=== PATIENT | female | born 1995 | race Hispanic/Latino ===

== ENCOUNTER 2018-06-11 16:34 | Emergency (ER) | payer OTHER ==
[2018-06-11] MEDS: KETOROLAC 30 MG/ML VIAL (J1885) IV ×2 (18:51)
[2018-06-11 18:52] LABS: BASO % 0.4 % (0.0-1.0); EOS # 0.1 10^3/uL (0.0-0.50); EOS % 1.2 % (0.0-3.0); HEMATOCRIT 42.1 % (36.0-47.0); HEMOGLOBIN 13.6 g/dl (12.0-15.5); IMMATURE GRANULOCYTE % 0.2 % (0-3.0); LYMPH # 2.1 10^3/uL (1.5-6.5); LYMPH % 39.9 % (24.0-44.0); MEAN CORPUSCULAR HEMOGLOBIN 28.9 pg (27.0-33.0); MEAN CORPUSCULAR HGB CONC 32.3 g/dl (32.0-36.5); MEAN CORPUSCULAR VOLUME 89.4 fl (80.0-96.0); MONO # 0.5 10^3/uL (0.0-0.8); MONO % 9.1 % (0.0-5.0); NEUTROPHILS # 2.5 10^3/uL (1.8-7.7); NEUTROPHILS % 49.2 % (36.0-66.0); PLATELET COUNT, AUTOMATED 211 10^3/uL (150-450); RED BLOOD COUNT 4.71 10^6/uL (4.00-5.40); RED CELL DISTRIBUTION WIDTH 12.5 % (11.5-14.5); WHITE BLOOD COUNT 5.2 10^3/uL (4.0-10.0)
[2018-06-11 19:03] LABS: CONTROL LINE HCG INT CTR LINE PRESENT; HCG, SERUM QUALITATIVE NEGATIVE (NEGATIVE)
[2018-06-11 19:07] LABS: D-DIMER QUANT 362.5 ng/ml (<500)
[2018-06-11 19:17] LABS: ANION GAP 6 MEQ/L (8-16); BLOOD UREA NITROGEN 15 MG/DL (7-18); CARBON DIOXIDE LEVEL 28 MEQ/L (21-32); CHLORIDE LEVEL 107 MEQ/L (98-107); CPK CREATINE PHOSPHOKINASE 259 U/L (26-192); CREATININE FOR GFR 0.73 MG/DL (0.55-1.30); GLOMERULAR FILTRATION RATE > 60.0 (>60); GLUCOSE, FASTING 85 MG/DL (70-100); MB/CK RELATIVE INDEX 1.47 (< OR =4); POTASSIUM SERUM 3.8 MEQ/L (3.5-5.1); SODIUM LEVEL 141 MEQ/L (136-145); THYROID STIMULATING HORMONE 0.953 uIU/ML (0.358-3.740); TROPONIN I < 0.02 NG/ML (< 0.10)
== END 2018-06-11 20:09 | disposition home or self-care (01) ==
LOC: M ED 16:34
DX: R07.89 Other chest pain (principal); R00.1 Bradycardia, unspecified; Z82.49 Family history of ischemic heart disease and other diseases of the circulatory system
CPT/HCPCS: J1885

== ENCOUNTER 2018-07-08 19:11 | Emergency (ER) | payer OTHER ==
[2018-07-08] MEDS: predniSONE 20 MG TAB PO (20:56)
[2018-07-08] MEDS: NORCO, ANEXSIA 5/325MG TABLET (HYDROcodone/ACETAMINOPHEN) PO (20:56)
== END 2018-07-08 21:07 | disposition home or self-care (01) ==
LOC: M ED 19:11
DX: M54.5 Low back pain (principal)
CPT/HCPCS: 99283

== ENCOUNTER 2018-07-28 21:26 | Emergency (ER) | payer OTHER ==
[~2018-07-28] VITALS: Ht 149.9 cm; Wt 59.1 kg
[~2018-07-28 21:26] MED LIST: IBUP80TA PO; NORCOTAB PO; PRED20TA PO
[2018-07-28] MEDS ORDERED: OXYC1TAB23 PO (21:34)
[2018-07-28] MEDS ORDERED: METOCLOPRAMIDE INJ 10MG/2ML VIAL (J2765) IV ONE (22:15)
[2018-07-28] MEDS ORDERED: KETOROLAC 30 MG/ML VIAL (J1885) IV ONE (22:15)
[2018-07-28] MEDS ORDERED: NS 1,000 ML IV ONE (22:15)
[2018-07-28] MEDS ORDERED: diphenhydrAMINE INJ 50MG/ML VIAL (J1200) IV ONE (22:15)
[2018-07-28 22:47] LABS: BASO % 0.3 % (0.0-1.0); EOS % 0.7 % (0.0-3.0); HEMOGLOBIN 13.2 g/dl (12.0-15.5); LYMPH # 1.9 10^3/uL (1.5-6.5); LYMPH % 32.7 % (24.0-44.0); MEAN CORPUSCULAR HEMOGLOBIN 28.9 pg (27.0-33.0); MEAN CORPUSCULAR VOLUME 87.5 fl (80.0-96.0); MONO # 0.4 10^3/uL (0.0-0.8); MONO % 6.8 % (0.0-5.0); NEUTROPHILS # 3.5 10^3/uL (1.8-7.7); NEUTROPHILS % 59.3 % (36.0-66.0); PLATELET COUNT, AUTOMATED 177 10^3/uL (150-450); RED BLOOD COUNT 4.57 10^6/uL (4.00-5.40); WHITE BLOOD COUNT 5.9 10^3/uL (4.0-10.0)
[2018-07-28 23:27] LABS: BLOOD UREA NITROGEN 11 MG/DL (7-18); CALCIUM LEVEL 8.5 MG/DL (8.5-10.1); CARBON DIOXIDE LEVEL 29 MEQ/L (21-32); CHLORIDE LEVEL 107 MEQ/L (98-107); CREATININE FOR GFR 0.65 MG/DL (0.55-1.30); GLOMERULAR FILTRATION RATE > 60.0 (>60); GLUCOSE, FASTING 91 MG/DL (70-100); POTASSIUM SERUM 4.3 MEQ/L (3.5-5.1); SODIUM LEVEL 142 MEQ/L (136-145)
[2018-07-28 23:57] VITALS: BP 125/72
== END 2018-07-28 23:58 | disposition home or self-care (01) ==
LOC: M ED 21:26
DX: G43.909 Migraine, unspecified, not intractable, without status migrainosus (principal)
CPT/HCPCS: 80048; 81001; 81025; 83735; 84439; 84443; 85025; 96374; 96375; 99284; J1200; J1885; J2765

== ENCOUNTER → 2019-05-28 | Outpatient (CLI) | payer OTHER ==
[~2019-05-28] MED LIST changes: +HYDR-3715 PO; -NORCOTAB PO; +OXYC1TAB23 PO
[2019-05-30 00:11] LABS: ANTINUCLEAR ANTIBODIES DIRECT Negative (Negative)
[2019-06-03 10:14] LABS: DRVV SCREEN 36.9 SEC
[2019-06-03 10:17] LABS: PTT LUPUS TYPE ANTICOAG SCREEN 0.9 (0-1.2)
== END ==
LOC: M SMT 10:18
PROVIDERS: ATTEND Physician Assistant
DX: I73.00 Raynaud's syndrome without gangrene (principal)

== ENCOUNTER → 2019-06-16 | Outpatient (REF) | payer OTHER | LOC: M LAB REF 16:33 | PROVIDERS: ATTEND Nurse Practitioner Family | DX: J02.9 Acute pharyngitis, unspecified (principal) ==

== ENCOUNTER 2019-07-08 06:20 | Emergency (ER) | payer OTHER ==
[~2019-07-08] VITALS: Ht 149.9 cm; Wt 61.4 kg
[2019-07-08] MEDS ORDERED: TETRACAINE 0.5% OPHTH SOLN 4ML OU ONE (06:45)
[2019-07-08] MEDS ORDERED: FLUORESCEIN OPHTH 1 MG STRIP OU ONE (06:45)
[2019-07-08] MEDS ORDERED: OFLO3OPSO OU (07:59)
[2019-07-08] MEDS ORDERED: AUGM875T28 PO (07:59)
[2019-07-08 08:32] VITALS: BP 136/88
== END 2019-07-08 08:15 | disposition home or self-care (01) ==
LOC: M ED 06:20
DX: H10.33 Unspecified acute conjunctivitis, bilateral (principal); J01.90 Acute sinusitis, unspecified

== ENCOUNTER → 2019-08-28 | Outpatient (CLI) | payer OTHER ==
[~2019-08-28] MED LIST changes: +AUGM875T28 PO; +OFLO3OPSO OU
[2019-08-28 13:43] LABS: BASO % 0.4 % (0.0-1.0); EOS # 0.1 10^3/uL (0.0-0.5); EOS % 2.1 % (0.0-3.0); HEMATOCRIT 44.5 % (36.0-47.0); HEMOGLOBIN 13.9 g/dl (12.0-15.5); LYMPH # 1.8 10^3/uL (1.5-5.0); LYMPH % 34.5 % (24.0-44.0); MEAN CORPUSCULAR HEMOGLOBIN 28.7 pg (27.0-33.0); MEAN CORPUSCULAR HGB CONC 31.2 g/dl (32.0-36.5); MEAN CORPUSCULAR VOLUME 91.8 fl (80.0-96.0); MONO # 0.5 10^3/uL (0.0-0.8); MONO % 9.1 % (0.0-5.0); NEUTROPHILS # 2.8 10^3/uL (1.5-8.5); NEUTROPHILS % 53.7 % (36.0-66.0); PLATELET COUNT, AUTOMATED 191 10^3/uL (150-450); RED BLOOD COUNT 4.85 10^6/uL (4.00-5.40); WHITE BLOOD COUNT 5.2 10^3/uL (4.0-10.0)
[2019-08-28 14:00] LABS: ALT/SGPT 34 U/L (12-78); BILIRUBIN,TOTAL 0.8 MG/DL (0.2-1.0); BLOOD UREA NITROGEN 12 MG/DL (7-18); CALCIUM LEVEL 9.2 MG/DL (8.5-10.1); CARBON DIOXIDE LEVEL 28 MEQ/L (21-32); CHLORIDE LEVEL 107 MEQ/L (98-107); CREATININE FOR GFR 0.71 MG/DL (0.55-1.30); FREE T4 1.04 NG/DL (0.76-1.46); GLOMERULAR FILTRATION RATE > 60.0 (>60); GLUCOSE, FASTING 81 MG/DL (70-100); POTASSIUM SERUM 4.5 MEQ/L (3.5-5.1); SODIUM LEVEL 141 MEQ/L (136-145); THYROID STIMULATING HORMONE 0.871 uIU/ML (0.358-3.740); TOTAL PROTEIN 7.3 GM/DL (6.4-8.2)
== END ==
LOC: M PLALAB 09:34
PROVIDERS: ATTEND Physician Assistant
DX: F33.1 Major depressive disorder, recurrent, moderate (principal)

== ENCOUNTER → 2019-09-25 | Outpatient (CLI) | payer OTHER ==
--- NOTE | 2019-09-25 11:53 | REP ---
Clinical: Pelvic pain and dysmenorrhea. Technique: Transabdominal pelvic ultrasound with color evaluation. Findings: The bladder is under distended. Normal anteverted uterus measures 6.6 x 3.8 x 4.9 cm. Endometrial complex measures 3.9 mm. No uterine or endometrial abnormality noted. Bilateral ovaries are normal in appearance and vascularity without torsion. Right ovary measures 3.5 x 1.9 x 1.6 cm. Left ovary measures 3.8 x 1.4 x 2.4 cm. No pelvic fluid or adnexal mass lesion. Impression: Normal transabdominal pelvic ultrasound.
== END ==
LOC: M WHC 11:07
PROVIDERS: ATTEND Obstetrics & Gynecology
DX: R10.2 Pelvic and perineal pain (principal)

== ENCOUNTER → 2019-11-26 | Outpatient (CLI) | payer OTHER ==
[2019-11-26 13:09] LABS: BASO % 0.6 % (0.0-1.0); EOS # 0.1 10^3/uL (0.0-0.5); EOS % 1.4 % (0.0-3.0); HEMATOCRIT 46.1 % (36.0-47.0); HEMOGLOBIN 14.8 g/dl (12.0-15.5); LYMPH # 1.7 10^3/uL (1.5-5.0); LYMPH % 32.9 % (24.0-44.0); MEAN CORPUSCULAR HEMOGLOBIN 28.9 pg (27.0-33.0); MEAN CORPUSCULAR HGB CONC 32.1 g/dl (32.0-36.5); MONO # 0.4 10^3/uL (0.0-0.8); MONO % 8.6 % (0.0-5.0); NEUTROPHILS # 2.8 10^3/uL (1.5-8.5); NEUTROPHILS % 56.3 % (36.0-66.0); PLATELET COUNT, AUTOMATED 177 10^3/uL (150-450); RED BLOOD COUNT 5.12 10^6/uL (4.00-5.40)
[2019-11-26 13:46] LABS: FREE T4 1.39 NG/DL (0.76-1.46); THYROID STIMULATING HORMONE 1.13 uIU/ML (0.358-3.740)
== END ==
LOC: M PLALAB 11:48
PROVIDERS: ATTEND Family Medicine
DX: Z13.29 Encounter for screening for other suspected endocrine disorder (principal); Z13.0 Encounter for screening for diseases of the blood and blood-forming organs and certain disorders involving the immune mechanism

== ENCOUNTER 2020-02-13 10:57 | Emergency (ER) | payer OTHER ==
[~2020-02-13] VITALS: Ht 149.9 cm; Wt 63.3 kg
[2020-02-13] MEDS ORDERED: LEXA1TAB PO (11:08)
[2020-02-13] MEDS ORDERED: DEPO150I12 IM (11:08)
[2020-02-13 12:26] VITALS: BP 133/86
--- NOTE | 2020-02-13 12:47 | REP ---
RIGHT WRIST, FOUR VIEWS: Four views of the right wrist are performed. There is no acute fracture or dislocation. There is ulnar minus variance. The joint spaces are unremarkable. IMPRESSION: No fracture or dislocation. Electronically Signed by Khurram Bassett MD 02/15/2020 11:11 P
== END 2020-02-13 12:28 | disposition home or self-care (01) ==
LOC: M ED 10:57
DX: M25.531 Pain in right wrist (principal); Z79.3 Long term (current) use of hormonal contraceptives; Z79.899 Other long term (current) drug therapy

== ENCOUNTER 2020-04-07 04:36 | Emergency (ER) | payer OTHER ==
[~2020-04-07] VITALS: Ht 149.9 cm; Wt 63.6 kg
[~2020-04-07 04:36] MED LIST changes: +DEPO150I12 IM; +LEXA1TAB PO
[2020-04-07] MEDS ORDERED: ZONI25CA13 PO (04:44)
[2020-04-07] MEDS ORDERED: METOCLOPRAMIDE INJ 10MG/2ML VIAL (J2765 PER 1) IV ONE (05:30)
[2020-04-07] MEDS ORDERED: NS 1,000 ML IV ONE (05:30)
[2020-04-07] MEDS ORDERED: diphenhydrAMINE 50MG/ML VIAL (J1200) IV ONE (05:30)
[2020-04-07] MEDS ORDERED: diazePAM 10MG/2ML SYRINGE (J3360 PER 5MG) IV ONE (05:30)
[2020-04-07] MEDS ORDERED: KETOROLAC 30 MG/ML 1ML VIAL IV ONE (05:30)
[2020-04-07 06:59] LABS: BASO % 0.5 % (0.0-1.0); EOS # 0.1 10^3/uL (0.0-0.5); EOS % 2.4 % (0.0-3.0); HEMATOCRIT 43.5 % (36.0-47.0); HEMOGLOBIN 14.2 g/dl (12.0-15.5); LYMPH # 1.9 10^3/uL (1.5-5.0); LYMPH % 32.6 % (24.0-44.0); MEAN CORPUSCULAR HGB CONC 32.6 g/dl (32.0-36.5); MONO # 0.5 10^3/uL (0.0-0.8); MONO % 9.1 % (0.0-5.0); NEUTROPHILS # 3.2 10^3/uL (1.5-8.5); NEUTROPHILS % 55.2 % (36.0-66.0); PLATELET COUNT, AUTOMATED 191 10^3/uL (150-450); RED BLOOD COUNT 4.89 10^6/uL (4.00-5.40); WHITE BLOOD COUNT 5.8 10^3/uL (4.0-10.0)
[2020-04-07 07:25] LABS: BLOOD UREA NITROGEN 13 MG/DL (7-18); CALCIUM LEVEL 9.1 MG/DL (8.5-10.1); CARBON DIOXIDE LEVEL 24 MEQ/L (21-32); CHLORIDE LEVEL 110 MEQ/L (98-107); CREATININE FOR GFR 0.73 MG/DL (0.55-1.30); GLOMERULAR FILTRATION RATE > 60.0 (>60); GLUCOSE, FASTING 86 MG/DL (70-100); POTASSIUM SERUM 4.2 MEQ/L (3.5-5.1); SODIUM LEVEL 140 MEQ/L (136-145)
[2020-04-07] MEDS ORDERED: MECL1TAB31 PO (09:38)
[2020-04-07 09:56] VITALS: BP 131/71
== END 2020-04-07 09:58 | disposition home or self-care (01) ==
LOC: M ED 04:36
DX: R42 Dizziness and giddiness (principal); G43.909 Migraine, unspecified, not intractable, without status migrainosus; Z79.899 Other long term (current) drug therapy; Z86.69 Personal history of other diseases of the nervous system and sense organs
CPT/HCPCS: 80048; 85025; 96374; 96375; 99284; J1200; J1885; J2765; J3360

== ENCOUNTER → 2020-04-23 | Outpatient (CLI) | payer OTHER ==
[~2020-04-23] MED LIST changes: +MECL1TAB31 PO; +ZONI25CA13 PO
[2020-04-23 13:05] LABS: BASO % 0.5 % (0.0-1.0); EOS # 0.1 10^3/uL (0.0-0.5); EOS % 1.4 % (0.0-3.0); HEMATOCRIT 46.8 % (36.0-47.0); HEMOGLOBIN 14.9 g/dl (12.0-15.5); LYMPH # 1.9 10^3/uL (1.5-5.0); LYMPH % 32.4 % (24.0-44.0); MEAN CORPUSCULAR HEMOGLOBIN 28.6 pg (27.0-33.0); MEAN CORPUSCULAR HGB CONC 31.8 g/dl (32.0-36.5); MEAN CORPUSCULAR VOLUME 89.8 fl (80.0-96.0); MONO # 0.5 10^3/uL (0.0-0.8); MONO % 8.2 % (0.0-5.0); NEUTROPHILS # 3.3 10^3/uL (1.5-8.5); NEUTROPHILS % 57.2 % (36.0-66.0); PLATELET COUNT, AUTOMATED 213 10^3/uL (150-450); RED BLOOD COUNT 5.21 10^6/uL (4.00-5.40); WHITE BLOOD COUNT 5.8 10^3/uL (4.0-10.0)
[2020-04-23 13:36] LABS: ERYTHROCYTE SEDIMENTATION RATE 21 mm/hr (0-20)
[2020-04-23 14:51] LABS: ALT/SGPT 47 U/L (12-78); BLOOD UREA NITROGEN 12 MG/DL (7-18); CALCIUM LEVEL 9.6 MG/DL (8.5-10.1); CARBON DIOXIDE LEVEL 24 MEQ/L (21-32); CHLORIDE LEVEL 108 MEQ/L (98-107); CREATININE FOR GFR 0.67 MG/DL (0.55-1.30); GLOMERULAR FILTRATION RATE > 60.0 (>60); GLUCOSE, FASTING 75 MG/DL (70-100); POTASSIUM SERUM 4.8 MEQ/L (3.5-5.1); RHEUMATOID FACTOR QUANT < 10.0 IU/ML (<15.0); SODIUM LEVEL 138 MEQ/L (136-145); TOTAL PROTEIN 7.8 GM/DL (6.4-8.2)
[2020-04-24 16:08] LABS: ANTINUCLEAR ANTIBODIES DIRECT Negative (Negative)
== END ==
LOC: M PLALAB 10:39
PROVIDERS: ATTEND Psychiatry & Neurology Neurology
DX: R51 Headache (principal)

== ENCOUNTER → 2020-05-27 | Outpatient (CLI) | payer SELFPAY | LOC: M LABSMTC 11:22 | PROVIDERS: ATTEND Pediatrics | DX: Z11.59 Encounter for screening for other viral diseases (principal) ==

== ENCOUNTER → 2020-06-19 | Outpatient (REF) | payer SELFPAY | LOC: M LABSMTC 08:00 → EDSTATUS 09:20 → M LABSMTC 10:45 | PROVIDERS: ATTEND Pediatrics | DX: Z20.828 Contact with and (suspected) exposure to other viral communicable diseases (principal) ==

== ENCOUNTER → 2020-08-09 | Outpatient (CLI) | payer SELFPAY | LOC: M LABSMTC 13:52 | PROVIDERS: ATTEND Pediatrics | DX: Z20.828 Contact with and (suspected) exposure to other viral communicable diseases (principal) ==

== ENCOUNTER → 2020-08-12 | Outpatient (CLI) | payer SELFPAY | LOC: M LABSMTC 12:57 | PROVIDERS: ATTEND Pediatrics | DX: Z20.822 Contact with and (suspected) exposure to COVID-19 (principal) ==

== ENCOUNTER → 2020-08-26 | Outpatient (REF) | payer SELFPAY ==
[~2020-08-26] MED LIST changes: +BRIN10TA4 PO; +METH-1164 PO; +NAPR-837 PO
== END ==
LOC: M LABSMTC 08:35 → EDSTATUS 11:40 → M LABSMTC 11:48
PROVIDERS: ATTEND Pediatrics
DX: Z20.822 Contact with and (suspected) exposure to COVID-19 (principal)

== ENCOUNTER 2020-09-02 06:33 | Emergency (ER) | payer OTHER, SELFPAY ==
[~2020-09-02] VITALS: Ht 149.9 cm; Wt 68.8 kg
[~2020-09-02 06:33] MED LIST changes: -BRIN10TA4 PO; -METH-1164 PO; -NAPR-837 PO
--- OUTSIDE RECORDS SUMMARY | 2020-09-02 06:41 | CCD ---
Continuity of Care Document (CCD) Created on: 08/12/2020 PieterkennKiera External Reference #: [id number] : [id number] Sex: Female Author Author Kiera JJ M.D. Organization Unknown Address [facility] [place] [address] Phone [phone] Care Team Providers Care Yield Analyst Name Role Phone Miracle FinleyM [phone] Problems Active Problems Provider Date Headache Preeti Jj M.D. Onset: 03/29/2020 Social History Type Date Description Comments Sex Unknown Tobacco Use Start: Unknown Patient has never smoked Allergies, Adverse Reactions, Alerts Description No Known Drug Allergies Medications Active Medications SIG Qnty Indications Ordering Provide r Date Zonisamide 25mg Capsules 1 tab by mouth nightly x 1 week, then 1 tab twice a day x 1 week, then 1 tab morning and 2 tabs nightly 42caps Preeti Jj M.D. 03/29/2020 Zonisamide 50mg Capsules 1 by mouth twice a day 60caps Preeti Jj M.D. 03/29/2020 Immunizations Description No Information Available Vital Signs Date Vital Result Comment 03/29/2020 3:15pm Height 59 inches 4'11" Weight 142.00 lb BMI (Body Mass Index) 28.7 kg/m2 [place] Body Weight 100 lb Results Test Acquired Date Facility Test Result H/L Range Note CBC With Differential 04/23/2020 [facility] White Blood Count 5.8 10 Normal 4.0-10.0 Red Blood Count 5.21 10 Normal 4.00-5.40 Hemoglobin 14.9 g/dL Normal 12.0-15.5 Hematocrit 46.8 % Normal 36.0-47.0 Mean Corpuscular Volume 89.8 fl Normal 80.0-96.0 Mean Corpuscular Hemoglobin 28.6 pg Normal 27.0-33.0 Mean Corpuscular HGB Conc 31.8 g/dL Low 32.0-36.5 Red Cell Distribution Width 13.1 % Normal 11.5-14.5 Platelet Count, Automated 213 10 Normal 150-450 Neutrophils % 57.2 % Normal 36.0-66.0 Lymph % 32.4 % Normal 24.0-44.0 [place] % 8.2 % High 0.0-5.0 Eos % 1.4 % Normal 0.0-3.0 Baso % 0.5 % Normal 0.0-1.0 Immature Granulocyte % 0.3 % Normal 0-3.0 Nucleated Red Blood Cell % 0.0 % Normal 0-0 Neutrophils # 3.3 10 Normal 1.5-8.5 Lymph # 1.9 10 Normal 1.5-5.0 [place] # 0.5 10 Normal 0.0-0.8 Eos # 0.1 10 Normal 0.0-0.5 Baso # 0.0 10 Normal 0.0-0.2 Laboratory test finding 04/23/2020 [facility] Erythrocyte Sedimentation Rate 21 mm/hr High 0-20 Comprehensive Metabolic Profil 04/23/2020 [facility] Glucose, Fasting 75 mg/dL Normal 70-100 Blood Urea Nitrogen 12 mg/dL Normal 7-18 Creatinine For GFR 0.67 mg/dL Normal 0.55-1.30 Glomerular Filtration Rate > 60.0 Normal >60 1 Sodium Level 138 mEq/L Normal 136-145 Potassium Serum 4.8 mEq/L Normal 3.5-5.1 Chloride Level 108 mEq/L High 98-107 Carbon Dioxide Level 24 mEq/L Normal 21-32 Anion Gap 6 mEq/L Low 8-16 Calcium Level 9.6 mg/dL Normal 8.5-10.1 Ast/Sgot 60 U/L High 7-37 Alt/SGPT 47 U/L Normal 12-78 Alkaline Phosphatase 80 U/L Normal 45-117 Bilirubin,Total 1.0 mg/dL Normal 0.2-1.0 Total Protein 7.8 GM/DL Normal 6.4-8.2 Albumin 4.0 GM/DL Normal 3.2-5.2 Albumin/Globulin Ratio 1.1 Low 1.2-2.2 Laboratory test finding 04/23/2020 [facility] Thyroid Stimulating Hormone 1.000 uIU/ML Normal 0.358-3.740 2 Rheumatoid Factor Quant < 10.0 IU/mL Normal <15.0 3 Antinuclear Antibodies 04/23/2020 [facility] Antinuclear Antibodies Direct Negative Normal Negative 4 1 Units are mL/min/1.73 m2 Chronic Kidney Disease Staging per NKF: Stage I & II GFR >=60 Normal to Mildly Decreased Stage III GFR 30-59 Moderately Decreased Stage IV GFR 15-29 Severely Decreased Stage V GFR <15 Very Little GFR Left ESRD GFR <15 on [employer] 2 note:<nlbl:demographic_chang ed> 3 note:<nlbl:demographic_chang ed> 4 Performed at: - [facility] [address] [id number] Edger Machine Operator: Taryn Robledo MD, Phone: [phone] Procedures Date Code Description Status 04/14/2020 75102 MRI Brain W/O Contrast Completed 04/14/2020 47276 MRI Brain W/O Contrast Completed 04/14/2020 07800 Magnetic Resonance Angiography N renata W/O Contrast Materials Completed 04/14/2020 32180 Magnetic Resonance Angiography N renata W/O Contrast Materials Completed 04/14/2020 48956 Magnetic Resonance Angiogtaphy H ead W/O Contrast Material(S) Completed 04/14/2020 89345 Magnetic Resonance Angiogtaphy H ead W/O Contrast Material(S) Completed Medical Devices Description No Information Available Encounters Type Date Location Provider Dx Diagnosis Office Visit 03/29/2020 2:00p Main office - [place] Preeti Jj M.D. G47.51 Confusional arousals R42 Dizziness and giddiness G43.809 Other migraine, not intracta ble, without status migrainosus I95.1 Orthostatic hypotension H53.8 Other visual disturbances G44.40 Drug-induced headache, NEC, not intractable Assessments Date Code Description Provider 04/14/2020 G43.809 Other migraine, not intractable, without status migrainosus Gabriel Jj M.D. 04/14/2020 G43.809 Other migraine, not intractable, without status migrainosus MRI 04/14/2020 R42 Dizziness and giddiness Gabriel Rivera M.D. 04/14/2020 R42 Dizziness and giddiness MRI 03/29/2020 G47.51 Confusional arousals Preeti manjarrez M.D. 03/29/2020 R42 Dizziness and giddiness Preeti rivera M.D. 03/29/2020 G43.809 Other migraine, not intractable, without status migrainosus Preeti Jj M.D. 03/29/2020 I95.1 Orthostatic hypotension Preeti rivera M.D. 03/29/2020 H53.8 Other visual disturbances Preeti Jj M.D. 03/29/2020 G44.40 Drug-induced headach e, not elsewhere classified, not intractable Preeti Jj M.D. Plan of Treatment No Information Available Functional Status Description No Information Available Mental Status Description No Information Available Referrals Refer to Dr Reason for Referral Status Appt Date Lara Betts M.D. Created [address] [place] [address] [phone] Lara Betts M.D. Created [address] [place] [address] [phone]
--- OUTSIDE RECORDS SUMMARY | 2020-09-02 06:41 | CCD | Continuity of Care Document ---
Author Author Kiera JJ M.D. Organization Unknown Address [facility] [place] [address] Phone [phone] Care Team Providers Care Heel Varnisher Name Role Phone Miracle FinleyM Problems Active Problems Provider Date Headache Preeti [...] lb BMI (Body Mass Index) 28.7 kg/m2 [place] Body Weight 100 lb Results Test Acquired Date Facility Test Result H/L Range Note CBC With Differential 04/23/2020 [facility] White Blood Count 5.8 10 Normal [...] 36.0-66.0 Lymph % 32.4 % Normal 24.0-44.0 [place] % 8.2 % High 0.0-5.0 Eos % 1.4 % Normal 0.0-3.0 Baso % 0.5 % Normal 0.0-1.0 Immature Granulocyte % 0.3 % Normal 0-3.0 Nucleated Red Blood Cell % 0.0 % Normal 0-0 Neutrophils # 3.3 10 Normal 1.5-8.5 Lymph # 1.9 10 Normal 1.5-5.0 [place] # 0.5 10 Normal 0.0-0.8 Eos # 0.1 10 Normal 0.0-0.5 Baso # 0.0 10 Normal 0.0-0.2 Laboratory test finding 04/23/2020 [facility] Erythrocyte Sedimentation Rate 21 mm/hr High 0-20 Comprehensive Metabolic Profil 04/23/2020 [facility] Glucose, Fasting 75 mg/dL Normal 70-100 [...] 1.1 Low 1.2-2.2 Laboratory test finding 04/23/2020 [facility] Thyroid Stimulating Hormone 1.000 uIU/ML Normal 0.358-3.740 2 Rheumatoid Factor Quant < 10.0 IU/mL Normal <15.0 3 Antinuclear Antibodies 04/23/2020 [facility] Antinuclear Antibodies Direct Negative Normal Negative 4 1 Units are mL/min/1.73 m2 Chronic Kidney Disease Staging per NKF: Stage I & II GFR >=60 Normal to Mildly Decreased Stage III GFR 30-59 Moderately Decreased Stage IV GFR 15-29 Severely Decreased Stage V GFR <15 Very Little GFR Left ESRD GFR <15 on CLINICAL TECH 2 note:<nlbl:demographic_chang ed> 3 note:<nlbl:demographic_chang ed> 4 Performed at: [facility] [id number] Real Estate Instructor: Taryn Robledo MD, Phone: [phone] Procedures Date Code Description Status 04/14/2020 37723 MRI Brain W/O Contrast Completed 04/14/2020 41147 MRI Brain W/O Contrast Completed 04/14/2020 12867 Magnetic Resonance Angiography N renata W/O Contrast Materials Completed 04/14/2020 63249 Magnetic Resonance Angiography N renata W/O Contrast Materials Completed 04/14/2020 44420 Magnetic Resonance Angiogtaphy H ead W/O Contrast Material(S) Completed 04/14/2020 91034 Magnetic Resonance Angiogtaphy H ead W/O Contrast Material(S) Completed Medical Devices Description No Information Available Encounters Type Date Location Provider Dx Diagnosis Office Visit 08/12/2020 9:00a Main office [place] M.[place]. R42 Dizziness and giddiness G43.809 Other migraine, not intracta ble, without status migrainosus M54.2 Cervicalgia I95.1 Orthostatic hypotension M54.81 Occipital neuralgia G44.40 Drug-induced headache, NEC, not intractable Office Visit 03/29/2020 2:00p Main office - [place] M.D. G47.51 Confusional arousals R42 Dizziness and giddiness G43.809 Other migraine, not intracta ble, without status migrainosus I95.1 Orthostatic hypotension H53.8 Other visual disturbances G44.40 Drug-induced headache, NEC, not intractable Assessments Date Code Description Provider 08/12/2020 R42 Dizziness and giddiness Preeti L nicole, M.D. 08/12/2020 G43.809 Other migraine, not intractable, without status migrainosus Preeti Анна, M.D. 08/12/2020 M54.2 Cervicalgia Preeti Анна, M. D. 08/12/2020 I95.1 Orthostatic hypotension Preeti L nicole, M.D. 08/12/2020 M54.81 Occipital neuralgia Preeti Анна , M.D. 08/12/2020 G44.40 Drug-induced headach e, not elsewhere classified, not intractable Preeti Анна, M.D. 04/14/2020 G43.809 Other migraine, not intractable, without status migrainosus Gabriel Анна, M.D. 04/14/2020 G43.809 Other migraine, not intractable, without status migrainosus MRI 04/14/2020 R42 Dizziness and giddiness Gabriel Yuliya steele M.DMya 04/14/2020 R42 Dizziness and giddiness MRI 03/29/2020 G47.51 Confusional arousals Preeti Palumboasia manjarrez M.DMya 03/29/2020 R42 Dizziness and giddiness Preeti L nicole, M.D. 03/29/2020 G43.809 Other migraine, not intractable, without status migrainosus Preeti Анна, M.D. 03/29/2020 I95.1 Orthostatic hypotension Preeti Prado nicole, M.D. 03/29/2020 H53.8 Other visual disturbances Preeti Анна, M.DMya 03/29/2020 G44.40 Drug-induced headach e, not elsewhere classified, not intractable Preeti Jj M.D. Plan of Treatment No Information Available Functional Status Description No Information Available Mental Status Description No Information Available Referrals Refer to Dr Reason for Referral Status Appt Date Lara Betts M.D. Created [address] [place] [address] [phone] Lara Betts M.D. Created [address] [place] [address] [phone]
--- OUTSIDE RECORDS SUMMARY | 2020-09-02 06:42 | CCD ---
Author Author [facility] Organization [facility] Address Unknown Phone Unavailable Care Team Providers Care Minute Clerk For Basic Traffic Name Role Phone OSMAN RON MD Unavailable Unavailable OSMAN RON MD Unavailable Unavailable OSMAN RON MD Unavailable Unavailable OSMAN RON MD Unavailable Unavailable OSMAN RON MD Unavailable Unavailable OSMAN RON MD Unavailable Unavailable OSMAN RON MD Unavailable Unavailable OSMAN RON MD Unavailable Unavailable OSMAN RON MD Unavailable Unavailable OSMAN RON MD Unavailable Unavailable OSMAN RON MD Unavailable Unavailable OSMAN RON MD Unavailable Unavailable OSMAN RON MD Unavailable Unavailable OSMAN RON MD Unavailable Unavailable OSMAN RON MD Unavailable Unavailable OSMAN RON MD Unavailable Unavailable OSMAN RON MD Unavailable Unavailable OSMAN RON MD Unavailable Unavailable OSMAN RON MD Unavailable Unavailable OSMAN RON MD Unavailable Unavailable OSMAN RON MD Unavailable Unavailable OSMAN RON MD Unavailable Unavailable OSMAN RON MD Unavailable Unavailable ARIADNEOSMAN WELLS MD Unavailable Unavailable ARIADNE, OSMAN REYES Unavailable Unavailable ARIADNE, OSMAN MD Unavailable Unavailable ARIADNE, OSMAN REYES Unavailable Unavailable ARIADNE, OSMAN MD Unavailable Unavailable ARIADNE, OSMAN MD Unavailable Unavailable ARIADNE, OSMAN MD Unavailable Unavailable ARIADNE, OSMAN MD Unavailable Unavailable ARIADNE, OSMAN REYES Unavailable Unavailable ARIADNE, OSMAN MD Unavailable Unavailable ARIADNE, OSMAN REYES Unavailable Unavailable ARIADNE, OSMAN REYES Unavailable Unavailable ARIADNE, OSMAN MD Unavailable Unavailable ARIADNE, OSMAN REYES Unavailable Unavailable ARIADNE, OSMAN REYES Unavailable Unavailable ARIADNE, OSMAN REYES Unavailable Unavailable ARIADNE, OSMAN REYES Unavailable Unavailable Farideh BURKS MD Unavailable Unavailable Farideh BURKS MD Unavailable Unavailable Farideh BURKS MD Unavailable Unavailable Farideh BURKS MD Unavailable Unavailable Farideh BURKS MD Unavailable Unavailable Farideh BURKS MD Unavailable Unavailable Farideh BURKS MD Unavailable Unavailable Farideh BURKS MD Unavailable Unavailable Farideh BURKS MD Unavailable Unavailable Farideh BURKS MD Unavailable Unavailable Farideh BURKS MD Unavailable Unavailable Farideh BURKS MD Unavailable Unavailable Farideh BURKS MD Unavailable Unavailable Farideh BURKS MD Unavailable Unavailable Farideh BURKS MD Unavailable Unavailable Farideh BURKS MD Unavailable Unavailable Farideh BURKS MD Unavailable Unavailable Farideh BURKS MD Unavailable Unavailable Farideh BURKS MD Unavailable Unavailable Farideh BURKS MD Unavailable Unavailable Farideh BURKS MD Unavailable Unavailable Farideh BURKS MD Unavailable Unavailable Farideh BURKS MD Unavailable Unavailable Farideh BURKS MD Unavailable Unavailable Farideh BURKS MD Unavailable Unavailable Farideh BURKS MD Unavailable Unavailable Farideh BURKS MD Unavailable Unavailable Katie, Kamran PA Unavailable Unavailable Katie, Kamran PA Unavailable Unavailable Katie, Kamran PA Unavailable Unavailable Katie, Kamran PA Unavailable Unavailable Katie, Kamran PA Unavailable Unavailable Katie, Kamran PA Unavailable Unavailable Katie, Kamran PA Unavailable Unavailable Katie, Kamran PA Unavailable Unavailable Katie, Kamran PA Unavailable Unavailable Katie, Kamran PA Unavailable Unavailable Katie, Kamran PA Unavailable Unavailable Katie, Kamran PA Unavailable Unavailable Katie, Kamran PA Unavailable Unavailable Katie, Kamran PA Unavailable Unavailable Katie, Kamran PA Unavailable Unavailable Katie, Kamran PA Unavailable Unavailable Katie, Kamran PA Unavailable Unavailable Katie, Kamran PA Unavailable Unavailable Katie, Kamran PA Unavailable Unavailable Katie, Kamran PA Unavailable Unavailable Katie, Kamran PA Unavailable Unavailable Katie, Kamran PA Unavailable Unavailable Katie, Kamran PA Unavailable Unavailable Katie, Kamran PA Unavailable Unavailable Katie, Kamran PA Unavailable Unavailable Katie, Kamran PA Unavailable Unavailable Katie, Kamran PA Unavailable Unavailable Katie, Kamran PA Unavailable Unavailable Katie, Kamran PA Unavailable Unavailable Katie, Kamran PA Unavailable Unavailable Katie, Kamran PA Unavailable Unavailable Katie, Kamran PA Unavailable Unavailable Katie, Kamran PA Unavailable Unavailable Katie, Kamran PA Unavailable Unavailable Katie, Kamran PA Unavailable Unavailable Katie, Kamran PA Unavailable Unavailable Katie, Kamran PA Unavailable Unavailable Katie, Kamran PA Unavailable Unavailable Katie, Kamran PA Unavailable Unavailable Katie, Kamran PA Unavailable Unavailable Katie, Kamran PA Unavailable Unavailable Katie, Kamran PA Unavailable Unavailable Katie, Kamran PA Unavailable Unavailable Katie, Kamran PA Unavailable Unavailable Katei, Kamran PA Unavailable Unavailable Katie, Kamran PA Unavailable Unavailable Katie, Kamran PA Unavailable Unavailable Katie, Kamran PA Unavailable Unavailable Annie Delaney MD Unavailable Unavailable Annie Delaney MD Unavailable Unavailable Annie Delaney MD Unavailable Unavailable Annie Delaney MD Unavailable Unavailable Annie Delaney MD Unavailable Unavailable MollAnnie murry MD Unavailable Unavailable MollAnnie murry MD Unavailable Unavailable Annie Delaney MD Unavailable Unavailable Annie Delaney MD Unavailable Unavailable Annie Delaney MD Unavailable Unavailable Annie Delaney MD Unavailable Unavailable Annie Delaney MD Unavailable Unavailable Annie Delaney MD Unavailable Unavailable Annie Delaney MD Unavailable Unavailable Annie Delaney MD Unavailable Unavailable Annie Delaney MD Unavailable Unavailable Annie Delaney MD Unavailable Unavailable Annie Delaney MD Unavailable Unavailable Annie Delaney MD Unavailable Unavailable Annie Delaney MD Unavailable Unavailable Annie Delaney MD Unavailable Unavailable Annie Delaney MD Unavailable Unavailable FRANCHESKA-VILMA, JAYY DO Unavailable Unavailable FRANCHESKA-VILMA, JAYY DO Unavailable Unavailable FRANCHESKA-VILMA, JAYY DO Unavailable Unavailable FRANCHESKA-VILMA, JAYY DO Unavailable Unavailable FRANCHESKA-VILMA, JAYY DO Unavailable Unavailable FRANCHESKA-VILMA, JAYY DO Unavailable Unavailable FRANCHESKA-VILMA, JAYY DO Unavailable Unavailable FRANCHESKA-VILMA, JAYY DO Unavailable Unavailable FRANCHESKA-VILMA, JAYY DO Unavailable Unavailable FRANCHESKA-VILMA, JAYY DO Unavailable Unavailable FRANCHESKA-VILMA, JAYY DO Unavailable Unavailable FRANCHESKA-VILMA, JAYY DO Unavailable Unavailable FRANCHESKA-VILMA, JAYY DO Unavailable Unavailable FRANCHESKA-VILMA, JAYY DO Unavailable Unavailable FRANCHESKA-VILMA, JAYY DO Unavailable Unavailable FRANCHESKA-VILMA, JAYY DO Unavailable Unavailable FRANCHESKA-VILMA, JAYY DO Unavailable Unavailable FRANCHESKA-VILMA, JAYY DO Unavailable Unavailable FRANCHESKA-VILMA, JAYY DO Unavailable Unavailable FRANCHESKA-VILMA, JAYY DO Unavailable Unavailable FRANCHESKA-VILMA, JAYY DO Unavailable Unavailable FRANCHESKA-VILMA, JAYY DO Unavailable Unavailable FRANCHESKA-VILMA, JAYY DO Unavailable Unavailable FRANCHESKA-VILMA, JAYY DO Unavailable Unavailable FRANCHESKA-VILMA, JAYY DO Unavailable Unavailable FRANCHESKA-VILMA, JAYY DO Unavailable Unavailable FRANCHESKA-VILMA, JAYY DO Unavailable Unavailable FRANCHESKA-VILMA, JAYY DO Unavailable Unavailable FRANCHESKA-VILMA, JAYY DO Unavailable Unavailable FRANCHESKA-VILMA, JAYY DO Unavailable Unavailable FRANCHESKA-VILMA, JAYY DO Unavailable Unavailable FRANCHESKA-VILMA, JAYY DO Unavailable Unavailable FRANCHESKA-VILMA, JAYY DO Unavailable Unavailable FRANCHESKA-VILMA, JAYY DO Unavailable Unavailable FRANCHESKA-VILMA, JAYY DO Unavailable Unavailable FRANCHESKA-VILMA, JAYY DO Unavailable Unavailable FRANCHESKA-VILMA, JAYY DO Unavailable Unavailable FRANCHESKA-VILMA, JAYY DO Unavailable Unavailable FRANCHESKA-VILMA, JAYY DO Unavailable Unavailable FRANCHESKA-VILMA, JAYY DO Unavailable Unavailable FRANCHESKA-VILMA, JAYY DO Unavailable Unavailable FRANCHESKA-VILMA, JAYY DO Unavailable Unavailable FRANCHESKA-VILMA, JAYY DO Unavailable Unavailable FRANCHESKA-VILMA, JAYY DO Unavailable Unavailable FRANCHESKA-VILMA, JAYY DO Unavailable Unavailable FRANCHESKA-VILMA, JAYY DO Unavailable Unavailable FRANCHESKA-VILMA, JAYY DO Unavailable Unavailable FRANCHESKA-VILMA, JAYY DO Unavailable Unavailable FRANCHESKA-VILMA, JAYY DO Unavailable Unavailable FRANCHESKA-VILMA, JAYY DO Unavailable Unavailable FRANCHESKA-VILMA, JAYY DO Unavailable Unavailable FRANCHESKA-VILMA, JAYY DO Unavailable Unavailable FRANCHESKA-VILMA, JAYY DO Unavailable Unavailable FRANCHESKA-VILMA, JAYY DO Unavailable Unavailable FRANCHESKA-VILMA, JAYY DO Unavailable Unavailable FRANCHESKA-VILMA, JAYY DO Unavailable Unavailable FRANCHESKA-VILMA, JAYY DO Unavailable Unavailable FRANCHESKA-VILMA, JAYY DO Unavailable Unavailable FRANCHESKA-VILMA, JAYY DO Unavailable Unavailable FRANCHESKA-VILMA, JAYY DO Unavailable Unavailable FRANCHESKA-VILMA, JAYY DO Unavailable Unavailable FRANCHESKA-VILMA, JAYY DO Unavailable Unavailable FRANCHESKA-VILMA, JAYY DO Unavailable Unavailable FRANCHESKA-VILMA, JAYY DO Unavailable Unavailable FRANCHESKA-VILMA, JAYY DO Unavailable Unavailable FRANCHESKA-VILMA, JAYY DO Unavailable Unavailable FRANCHESKA-VILMA, JAYY DO Unavailable Unavailable FRANCHESKA-VILMA, JAYY DO Unavailable Unavailable FRANCHESKA-VILMA, JAYY DO Unavailable Unavailable FRACNHESKA-VILMA, JAYY DO Unavailable Unavailable FRANCHESKA-VILMA, JAYY DO Unavailable Unavailable FRANCHESKA-VILMA, JAYY DO Unavailable Unavailable FRANCHESKA-VILMA, JAYY DO Unavailable Unavailable FRANCHESKA-VILMA, JAYY DO Unavailable Unavailable FRANCHESKA-VILMA, JAYY DO Unavailable Unavailable FRANCHESKA-VILMA, JAYY DO Unavailable Unavailable FRANCHESKA-VILMA, JAYY DO Unavailable Unavailable FRANCHESKA-VILMA, JAYY DO Unavailable Unavailable FRANCHESKA-VILMA, JAYY DO Unavailable Unavailable FRANCHESKA-VILMA, JAYY DO Unavailable Unavailable FRANCHESKA-VILMA, JAYY DO Unavailable Unavailable FRANCHESKA-VILMA, JAYY DO Unavailable Unavailable Farideh BURKS MD Unavailable Unavailable Farideh BURKS MD Unavailable Unavailable GINYARD, Farideh FERRO MD Unavailable Unavailable GINYARD, Farideh FERRO MD Unavailable Unavailable GINYARD, Farideh FERRO MD Unavailable Unavailable GINYARD, Farideh FERRO MD Unavailable Unavailable GINYARD, Farideh FERRO MD Unavailable Unavailable GINYARD, Farideh FERRO MD Unavailable Unavailable GINYARD, Farideh FERRO MD Unavailable Unavailable GINYARD, Farideh FERRO MD Unavailable Unavailable GINYARD, Farideh FERRO MD Unavailable Unavailable GINYARD, Farideh FERRO MD Unavailable Unavailable GINYARD, Farideh FERRO MD Unavailable Unavailable GINYARD, Farideh FERRO MD Unavailable Unavailable GINYARD, Farideh FERRO MD Unavailable Unavailable GINYARD, Farideh FERRO MD Unavailable Unavailable GINYARD, Farideh FERRO MD Unavailable Unavailable GINYARD, Farideh FERRO MD Unavailable Unavailable GINYARD, Farideh FERRO MD Unavailable Unavailable GINYARD, Farideh FERRO MD Unavailable Unavailable GINYARD, Farideh FERRO MD Unavailable Unavailable GINYARD, Farideh FERRO MD Unavailable Unavailable GINYARD, Farideh FERRO MD Unavailable Unavailable GINYARD, Farideh FERRO MD Unavailable Unavailable GINYARD, Farideh FERRO MD Unavailable Unavailable GINYARD, Farideh FERRO MD Unavailable Unavailable GINYARD, Farideh FERRO MD Unavailable Unavailable Re-disclosure Warning The records that you are about to access may contain information from federally-assisted alcohol or drug abuse programs. If such information is present, then the following federally mandated warning applies: This information has been disclosed to you from records protected by federal confidentiality rules (42 CFR part 2). The federal rules prohibit you from making any further disclosure of this information unless further disclosure is expressly permitted by the written consent of the person to whom it pertains or as otherwise permitted by 42 CFR part 2. A general authorization for the release of medical or other information is NOT sufficient for this purpose. The Federal rules restrict any use of the information to criminally investigate or prosecute any alcohol or drug abuse patient.The records that you are about to access may contain highly sensitive health information, the redisclosure of which is protected by Article 27-F of the [facility] Public Health law. If you continue you may have access to information: Regarding HIV / AIDS; Provided by facilities licensed or operated by the [facility] Office of Mental Health; or Provided by the [facility] Office for People With Developmental Disabilities. If such information is present, then the following [facility] mandated warning applies: This information has been disclosed to you from confidential records which are protected by state law. State law prohibits you from making any further disclosure of this information without the specific written consent of the person to whom it pertains, or as otherwise permitted by law. Any unauthorized further disclosure in violation of state law may result in a fine or half-way sentence or both. A general authorization for the release of medical or other information is NOT sufficient authorization for further disc losure. Family History Family Member Name Family Member Gender Family Member Status Date o f Status Description Data Source(s) Unknown Unknown Problem MEDENT ([facility]) Encounters Encounter Providers Location Date Indications Data Source(s ) Outpatient Attender: OSMAN RON MD Main office [facility] ([facility]) 08/12/2020 08:00:00 AM EST MEDENT ([facility]) Outpatient Attender: JAYY MCCLENDON [facility] 06/01/2020 03:40:00 PM EDT [facility] ([facility]) Outpatient Attender: JAYY MCCLENDON [facility] 05/26/2020 03:40:00 PM EDT MED[facility] ([facility]) ([facility]) [facility] Nurse Visit [address] [place] [id number] 05/14/2020 12:00:00 AM EDT eCW1 ([facility]) Outpatient Attender: Holden Hopkins/[place] 04/28/2020 08:50:00 AM EDT [facility] Outpatient Attender: JAYY MCCLENDON [facility] 04/27/2020 02:00:00 PM EDT MEDENT ([facility]) Outpatient Attender: Holden Hopkins/[place]udin/Re indl 04/20/2020 10:40:00 AM EDT [facility] Outpatient Attender: Holden Hopkins/[place]udin/Re indl 03/30/2020 09:50:00 AM EDT [facility] ([facility] Outpatient Attender: OSMAN RON MD Main [facility] 03/29/2020 02:00:00 PM EDT MEDENT ([facility]) Outpatient Attender: JAYY MCCLENDON [facility] 03/23/2020 01:30:00 PM EDT MEDENT ([facility]) Outpatient Attender: JAYY MCCLENDON [facility] 03/11/2020 01:00:00 PM EDT MEDENT ([facility]) Outpatient Attender: JAYY MCCLENDON [facility] 03/09/2020 01:10:00 PM EDT MEDENT ([facility]) Outpatient Attender: Holden Hopkins/[place]ud[place]/Re indl 03/09/2020 10:10:00 AM EDT [facility] ([facility] ([facility]) [facility] Nurse Visit [address] [place] [address] 02/23/2020 12:00:00 AM EDT eCW1 ([facility]) Outpatient Attender: Holden Hopkins/[place]/Re indl 02/18/2020 08:20:00 AM EDT [facility] ([facility] Outpatient Attender: JAYY MCCLENDON [facility] 02/04/2020 10:00:00 AM EDT MEDENT ([facility]) [facility] [address] [place] [address] 12/08/2019 12:00:00 AM EDT eCW1 ([facility]) Outpatient Attender: JAYY MCCLENDON [facility] 11/26/2019 11:00:00 AM EDT MEDENT ([facility]) Outpatient 10/02/2019 07:28:00 PM EST [facility] Dermatology [address] [place] [address] 10/01/2019 12:00:00 AM EST eCW1 ([facility]) [facility] [address] [place] [address] 09/17/2019 12:00:00 AM EST eCW1 ([facility], [facility]) [facility] [address] [place] [address] 09/11/2019 12:00:00 AM EST eCW1 ([facility]) Outpatient Attender: Kamran ALANIS [facility] 08/26/2019 03:00:00 PM EST [facility]MARKOS ([facility]) Outpatient Attender: PILLO BURKS MD 09:46:00 AM EST - 08/04/2019 09:46:00 AM EST [facility] Outpatient Attender: PILLO BURKS MD Family Practice 08:30:00 AM EST MEDENT ([facility]) Immunizations Vaccine Date Status Description Data Source(s) Depo-Provera 150mg/1mL (Medroxy-Progestrone Acetate) 11:54:00 AM EDT completed eCW1 ([facility]) Depo-Provera 150mg/1mL (Medroxy-Progestrone Acetate) 03:30:00 PM EDT completed eCW1 ([facility]) Depo-Provera 150mg/1mL (Medroxy-Progestrone Acetate) 03:30:00 PM EDT completed eCW1 ([facility]) Depo-Provera 150mg/1mL (Medroxy-Progestrone Acetate) 03:18:00 PM EDT completed eCW1 ([facility]) Depo-Provera 150mg/1mL (Medroxy-Progestrone Acetate) 03:18:00 PM EDT completed eCW1 ([facility]) Depo-Provera 150mg/1mL (Medroxy-Progestrone Acetate) 03:18:00 PM EDT completed eCW1 ([facility]) Depo-Provera 150mg/1mL (Medroxy-Progestrone Acetate) 02:37:00 PM EST completed eCW1 ([facility]) Depo-Provera 150mg/1mL (Medroxy-Progestrone Acetate) 02:37:00 PM EST completed eCW1 ([facility]) Depo-Provera 150mg/1mL (Medroxy-Progestrone Acetate) 02:37:00 PM EST completed eCW1 ([facility]) Medications Medication Brand Name Start Date Product Form Dose Route Admi nistrative Instructions Pharmacy Instructions Status Indications Reaction Description Data Source(s) Trintellix Trintellix 06/01/2020 12:00:00 AM EDT ORAL a ctive MEDENT ([facility]) Ondansetron 8 MG Disintegrating Oral Tablet Ondansetron 05/26/2020 12:00:00 AM EDT active MEDENT ([facility]) Sertraline 50 MG Oral Tablet [Zoloft] Zoloft 04/27/2020 12:00:00 AM EDT ORAL completed MEDENT ([facility]) zonisamide 50 MG Oral Capsule Zonisamide 03/29/2020 12:00:00 AM EDT ORAL active MEDENT ([facility]) zonisamide 25 MG Oral Capsule Zonisamide 03/29/2020 12:00:00 AM EDT ORAL active MEDENT ([facility]) Escitalopram 5 MG Oral Tablet [Lexapro] Lexapro 03/09/2020 12:00:0 0 AM EDT ORAL completed MEDENT ([facility]) Amoxicillin 875 MG / Clavulanate 125 MG Oral Tablet Am oxicillin/Clavulanate Potassium 02/04/2020 12:00:00 AM EDT ORAL completed MEDENT ([facility]) Escitalopram 10 MG Oral Tablet [Lexapro] Lexapro 02/04/2020 12:00: 00 AM EDT ORAL completed MEDENT ([facility]) Cholecalciferol 2000 UNT Oral Capsule Vitamin D3 Super Stren gth 11/26/2019 12:00:00 AM EDT ORAL active M EDENT ([facility]) Trazodone Hydrochloride 50 MG Oral Tablet Trazodone HCL 11/17/2019 12:00:00 AM EDT ORAL active MEDENT ([facility]) 200 ACTUAT Albuterol 0.09 MG/ACTUAT Metered Dose Inhal er [Ventolin] Ventolin HFA 11/17/2019 12:00:00 AM EDT RESPIRATORY active MEDENT ([facility]) medroxyprogesterone acetate 150 MG/ML In jectable Suspension [Depo-Provera] Depo- Provera 150 MG/ML Depo-Provera 150 MG/ML 09/11/2019 12:00:00 AM EST active 1 ml eCW1 ([facility]) medroxyprogesterone acetate 150 MG/ML In jectable Suspension [Depo-Provera] Depo- Provera 150 MG/ML Depo-Provera 150 MG/ML 09/11/2019 12:00:00 AM EST 1.0 {ml} active Depo-Provera 150 MG/ ML eCW1 ([facility]) medroxyprogesterone acetate 150 MG/ML In jectable Suspension [Depo-Provera] Depo- Provera 150 MG/ML Depo-Provera 150 MG/ML 09/11/2019 12:00:00 AM EST active 1 ml eCW1 ([facility]) medroxyprogesterone acetate 150 MG/ML In jectable Suspension [Depo-Provera] Depo- Provera 150 MG/ML Depo-Provera 150 MG/ML 09/11/2019 12:00:00 AM EST 1.0 {ml} active Depo-Provera 150 MG/ ML eCW1 ([facility]) Insurance Providers Payer name Policy type / Coverage type Policy ID Covered libertarian ID Covered libertarian's relationship to cornejo Policy [place] Plan Information SELF PAY ONLY [id number] [employer] O [id number] S [id number] [facility] HUMANA [id number] [facility] [id number] [employer] O UNAVAILABLE S UNAVAILABLE [place] [id number] S [id number] [facility] [place] [id number] 01 [id number] [facility] Commercial [id number] Family Dependent [id number] Problems, Conditions, and Diagnoses Code Display Name Description Problem Type Effective Dates Data Source(s) 01005751 Headache Headache Problem 03/29/2020 12:00:00 AM ED T MEDENT ([facility]) D22.30 [id number] Melanocytic nevi of face Problem 10/27/2019 12:00:00 AM EDT eCW1 ([facility]) D23.9 [id number] Dermatofibroma Problem 10/27/2019 12:00:00 A M EDT eCW1 ([facility]) D22.30 [id number] Melanocytic nevi of face Problem 10/27/2019 12:00:00 AM EDT eCW1 ([facility]) D23.9 [id number] Dermatofibroma Problem 10/27/2019 12:00:00 A M EDT eCW1 ([facility]) N944 Primary dysmenorrhea Primary dysmenorrhea Diagnosis 08/04/2019 09:46:00 AM [facility] Surgeries/Procedures Procedure Description Date Indications Data Source(s) Injection, medroxyprogesterone acetate for contraceptive use , 150 mg 05/14/2020 12:00:00 AM EDT eCW1 ([facility]) INJECTION 1 TENDON SHEATH/LIGAMENT APONEUROSIS 020 12:00:00 AM EDT MED[facility] ([facility] Magnetic Resonance Angiogtaphy Head W/O Contrast Material(S) 04/14/2020 12:00:00 AM EDT MEDENT ([facility] Magnetic Resonance Angiogtaphy Head W/O Contrast Material(S) 04/14/2020 12:00:00 AM EDT MEDENT ([facility] ) Magnetic Resonance Angiography Neck W/O Contrast Materials 04/14/2020 12:00:00 AM EDT MED[facility] ([facility]) Magnetic Resonance Angiography Neck W/O Contrast Materials 04/14/2020 12:00:00 AM EDT MED[facility] ([facility]) MRI BRAIN BRAIN STEM W/O CONTRAST MATERIAL 04/14/2020 12:00:00 AM EDT MEDENT ([facility]) MRI BRAIN BRAIN STEM W/O CONTRAST MATERIAL 04/14/2020 12:00:00 AM EDT MEDENT ([facility]) Omt 7-8 Body Regions 03/11/2020 12:00:00 AM EDT MEDENT ([facility]) Injection, medroxyprogesterone acetate for contraceptive use , 150 mg 02/23/2020 12:00:00 AM EDT eCW1 ([facility]) THER/PROPH/DIAG INJ, SC/IM 12/08/2019 12:00:00 AM EDT eCW1 ([facility]) Injection, medroxyprogesterone acetate, 1 mg 0 12:00:00 AM EST eCW1 ([facility]) URINE TEST 09/17/2019 12:00:00 AM EST eCW1 ([facility]) Results ID Date Data Source [id number] 08/26/2020 11:45:00 AM EST [facility] Name Value Range Interpretation Code Description Data Leida rce(s) Supporting Document(s) SARS coronavirus 2 RNA Not Detected [facility] This lab was ordered by [facility] and reported by [facility]. ID Date Data Source [id number] 08/12/2020 12:00:00 AM EST [facility] Name Value Range Interpretation Code Description Data Leida rce(s) Supporting Document(s) SARS-CoV-2 (COVID-19) RNA [Presence] in Respiratory specimen by ADAN with probe detection Not Detected [facility] This lab was ordered by [facility] and reported by [employer] ID Date Data Source [id number] 08/09/2020 11:55:00 AM EST [facility] Name Value Range Interpretation Code Description Data Leida rce(s) Supporting Document(s) SARS coronavirus 2 RNA Not Detected [facility] [place] This lab was ordered by [facility] and reported by [facility]. ID Date Data Source [id number] 05/27/2020 11:25:00 AM EDT [facility] ([facility]) Name Value Range Interpretation Code Description Data [facility] rce(s) Supporting Document(s) Laboratory test finding (navigational concept) Laboratory test result [facility] ([facility]) Test: COVID-19 Nasal/Naspharynx Result: NOT DETECTED Reference Units: Not detected Note: Please consider re-collection of a new specimen, if clinically indicated. Note: The COVID-19 assay has been FDA cleared by the U.S. Food and Drug Administration under the Emergency Use Authorization (EUA). [facility] is designated as a high complexity laboratory by the Clinical Laboratory Improvement Amendments of 1988 (CLIA) and is qualified to perform this test. ASSAY INFORMATION: [id number]. Patient samples for this assay have been pooled. All positive samples have been individually repeated for confirmation. The pooling protocol is pending FDA review. ID Date Data Source [id number] 05/27/2020 12:00:00 AM EDT [facility] Name Value Range Interpretation Code Description Data [facility] rce(s) Supporting Document(s) 2019-nCoV RNA XXX ADAN+probe-Imp [facility] This lab was ordered by [facility] and reported by [employer] ID Date Data Source [id number] 05/03/2020 12:00:00 PM EDT [facility] Name Value Range Interpretation Code Description Data Leida rce(s) Supporting Document(s) SARS coronavirus 2 RNA [facility] This lab was ordered by [facility] and reported by [facility]. ID Date Data Source [id number] 04/26/2020 02:29:00 PM EDT [facility] Name Value Range Interpretation Code Description Data Leida rce(s) Supporting Document(s) SARS coronavirus 2 RNA [facility] This lab was ordered by [facility] and reported by [facility]. ID Date Data Source [id number] 04/23/2020 10:52:00 AM EDT [facility] ([facility] ) Name Value Range Interpretation Code Description Data Leida rce(s) Supporting Document(s) Antinuclear Antibodies Direct Laboratory test result [facility] ([facility], ) Performed at: - [facility] [place] [id number] Stock Preparer: Taryn Robledo MD, Phone: [phone] ID Date Data Source [id number] 04/23/2020 10:52:00 AM EDT [facility] ([facility] ) Name Value Range Interpretation Code Description Data Leida rce(s) Supporting Document(s) Thyrotropin [Units/volume] in Serum or Plasma 1.000 uIU/ML 0.358-3.74 0 [facility] ([facility] ) <content>note:<nlbl:demographic_changed> </content>
<content></content> Rheumatoid factor [Units/volume] in Serum or Plasma Laboratory test result [facility] ([facility] ) <content>note:<nlbl:demographic_changed> </content>
<content></content> ID Date Data Source [id number] 04/23/2020 10:52:00 AM EDT [facility] ([facility] ) Name Value Range Interpretation Code Description Data Leida rce(s) Supporting Document(s) Blood Urea Nitrogen 12 mg/dL 7-18 [facility] ([facility] ) Glucose, Fasting 75 mg/dL 70-100 [facility] ([facility] ) Glomerular Filtration Rate Laboratory test result [facility] ([facility], ) <content>Units are mL/min/1.73 m2</content>
<content></content>
<content>Chronic Kidney Disease Staging per NKF:</content>
<content></content>
<content>Stage I & II GFR >=60 Normal to Mildly Decreased</content>
<content>Stage III GFR 30- 59 Moderately Decreased</content>
<content>Stage IV GFR 15-29 Severely Decreased</content>
<content>Stage V GFR <15 Very Little GFR Left</content>
<content>ESRD GFR <15 on BLOOD DONOR RECRUITER SUPERVISOR</content>
<content></content> Creatinine For GFR 0.67 mg/dL 0.55-1.30 [facility] ([facility]) Chloride Level 108 meq/L 98-107 [facility] ([facility]) Sodium Level 138 meq/L 136-145 [facility] ([facility]) Potassium Serum 4.8 meq/L 3.5-5.1 [facility] ([facility]) Calcium Level 9.6 mg/dL 8.5-10.1 [facility] ([facility]) Carbon Dioxide Level 24 meq/L 21-32 [facility] ([facility]) Anion Gap 6 meq/L 8-16 [facility] ([facility]) Alkaline Phosphatase 80 U/L 45-117 [facility] ([facility]) Ast/Sgot 60 U/L 7-37 [facility] ([facility]) Alt/SGPT 47 U/L 12-78 [facility] ([facility]) Total Protein 7.8 GM/DL 6.4-8.2 [facility] ([facility]) Albumin 4.0 GM/DL 3.2-5.2 [facility] ([facility]) Bilirubin,Total 1.0 mg/dL 0.2-1.0 [facility] ([facility]) Albumin/Globulin Ratio 1.1 1.2-2.2 [facility] ([facility]) ID Date Data Source [id number] 04/23/2020 10:52:00 AM EDT [facility] ([facility]) Name Value Range Interpretation Code Description Data Leida rce(s) Supporting Document(s) Erythrocyte sedimentation rate by 2H Westergren method 21 mm/hr 0-2 0 [facility] ([facility]) ID Date Data Source [id number] 04/23/2020 10:52:00 AM EDT [facility] ([facility]) Name Value Range Interpretation Code Description Data Leida rce(s) Supporting Document(s) Red Blood Count 5.21 10 4.00-5.40 [facility] ([facility]) Hemoglobin 14.9 g/dL 12.0-15.5 [facility] ([facility]) White Blood Count 5.8 10 4.0-10.0 [facility] ([facility]) Hematocrit 46.8 % 36.0-47.0 [facility] ([facility]) Mean Corpuscular Volume 89.8 fl 80.0-96.0 M [facility] ([facility]) Mean Corpuscular HGB Conc 31.8 g/dL 32.0-36.5 [facility] ([facility]) Red Cell Distribution Width 13.1 % 11.5-14.5 [facility] ([facility]) Mean Corpuscular Hemoglobin 28.6 pg 27.0-33.0 [facility] ([facility]) Platelet Count, Automated 213 10 150-450 [facility] ([facility]) Lymph % 32.4 % 24.0-44.0 [facility] ([facility]) Neutrophils % 57.2 % 36.0-66.0 [facility] ([facility]) Baso % 0.5 % 0.0-1.0 [facility] ([facility]) Eos % 1.4 % 0.0-3.0 [facility] ([facility]) [place] % 8.2 % 0.0-5.0 [facility] ([facility]) Nucleated Red Blood Cell % 0.0 % 0-0 [facility] ([facility]) Immature Granulocyte % 0.3 % 0-3.0 [facility] ([facility]) Lymph # 1.9 10 1.5-5.0 [facility] ([facility]) Neutrophils # 3.3 10 1.5-8.5 [facility] ([facility]) [place] # 0.5 10 0.0-0.8 [facility] ([facility]) Baso # 0.0 10 0.0-0.2 [facility] Eos # 0.1 10 0.0-0.5 [facility] ([facility]) ID Date Data Source [id number] 04/22/2020 02:39:00 PM EDT [facility] Name Value Range Interpretation Code Description Data Leida rce(s) Supporting Document(s) SARS coronavirus 2 RNA [facility] This lab was ordered by [facility] and reported by [facility]. ID Date Data Source [id number] 04/14/2020 12:00:00 PM EDT [facility] Name Value Range Interpretation Code Description Data Leida rce(s) Supporting Document(s) SARS coronavirus 2 RNA [facility] This lab was ordered by [facility] and reported by [facility]. ID Date Data Source [id number] 04/07/2020 06:40:00 AM EDT [facility] ([facility]) Name Value Range Interpretation Code Description Data Leida rce(s) Supporting Document(s) Glucose, Fasting 86 mg/dL 70-100 Normal (applies to non-numeric results) [facility] ([facility]) Creatinine For GFR 0.73 mg/dL 0.55-1.30 Normal (applies to non -numeric results) [facility] ([facility]) Blood Urea Nitrogen 13 mg/dL 7-18 Normal (applies to non-nume kervin results) [facility] ([facility]) Glomerular Filtration Rate Laboratory test result Normal (applies to non- numeric results) [facility] ([facility]) <content>Units are mL/min/1.73 m2</content>
<content></content>
<content>Chronic Kidney Disease Staging per NKF:</content>
<content></content>
<content>Stage I & II GFR >=60 Normal to Mildly Decreased</content>
<content>Stage III GFR 30- 59 Moderately Decreased</content>
<content>Stage IV GFR 15-29 Severely Decreased</content>
<content>Stage V GFR <15 Very Little GFR Left</content>
<content>ESRD GFR <15 on BLOOD DONOR RECRUITER SUPERVISOR</content>
<content></content> Sodium Level 140 meq/L 136-145 Normal (applies to non-numeric res ults) [facility] ([facility]) Chloride Level 110 meq/L 98-107 Above high normal [facility] ([facility]) Potassium Serum 4.2 meq/L 3.5-5.1 Normal (applies to non-numeric results) [facility] ([facility]) Calcium Level 9.1 mg/dL 8.5-10.1 Normal (applies to non-numeric re sults) [facility] ([facility]) Anion Gap 6 meq/L 8-16 Below low normal [facility] ( [facility]) Carbon Dioxide Level 24 meq/L 21-32 Normal (applies to non-num oscar results) [facility] ([facility]) ID Date Data Source [id number] 04/07/2020 05:27:00 AM EDT [facility] ([facility]) Name Value Range Interpretation Code Description Data Leida rce(s) Supporting Document(s) White Blood Count 5.8 10 4.0-10.0 Normal (applies to non-numeri c results) [facility] ([facility]) Red Blood Count 4.89 10 4.00-5.40 Normal (applies to non-numeric results) [facility] ([facility]) Hemoglobin 14.2 g/dL 12.0-15.5 Normal (applies to non-numeric resul ts) [facility] ([facility]) Hematocrit 43.5 % 36.0-47.0 Normal (applies to non-numeric resul ts) [facility] ([facility]) Mean Corpuscular HGB Conc 32.6 g/dL 32.0-36.5 Normal (applies to non-numeric results) [facility] ([facility]) Mean Corpuscular Volume 89.0 fl 80.0-96.0 Normal ( applies to non-numeric results) [facility] ([facility]) Mean Corpuscular Hemoglobin 29.0 pg 27.0-33.0 Norm al (applies to non-numeric results) [facility] ([facility]) Platelet Count, Automated 191 10 150-450 Normal (applies to non-numeric results) [facility] ([facility]) Neutrophils % 55.2 % 36.0-66.0 Normal (applies to non-numeric re sults) [facility] ([facility]) Red Cell Distribution Width 13.1 % 11.5-14.5 Norm al (applies to non-numeric results) [facility] ([facility]) Lymph % 32.6 % 24.0-44.0 Normal (applies to non-numeric resul ts) [facility] ([facility]) Eos % 2.4 % 0.0-3.0 Normal (applies to non-numeric resul ts) [facility] ([facility]) [place] % 9.1 % 0.0-5.0 Above high normal [facility] ([facility]) Baso % 0.5 % 0.0-1.0 Normal (applies to non-numeric resul ts) [facility] ([facility]) Nucleated Red Blood Cell % 0.0 % 0-0 Normal (applies to n on-numeric results) [facility] ([facility]) Immature Granulocyte % 0.2 % 0-3.0 Normal (applies to non-n umeric results) [facility] ([facility]) Lymph # 1.9 10 1.5-5.0 Normal (applies to non-numeric resul ts) [facility] ([facility]) [place] # 0.5 10 0.0-0.8 Normal (applies to non-numeric resul ts) [facility] ([facility]) Neutrophils # 3.2 10 1.5-8.5 Normal (applies to non-numeric re sults) [facility] ([facility]) Eos # 0.1 10 0.0-0.5 Normal (applies to non-numeric resul ts) [facility] ([facility]) Baso # 0.0 10 0.0-0.2 Normal (applies to non-numeric resul ts) [facility] ([facility]) ID Date Data Source [id number] 04/05/2020 11:43:00 AM EDT [facility] Name Value Range Interpretation Code Description Data Leida rce(s) Supporting Document(s) SARS coronavirus 2 RNA [facility] This lab was ordered by [facility] and reported by [facility]. ID Date Data Source [id number] 03/29/2020 02:24:00 PM EDT [facility] Name Value Range Interpretation Code Description Data Leida rce(s) Supporting Document(s) SARS coronavirus 2 RNA [facility] This lab was ordered by [facility] and reported by [facility]. ID Date Data Source [id number] 03/25/2020 02:35:00 PM EDT [facility] Name Value Range Interpretation Code Description Data Leida rce(s) Supporting Document(s) SARS coronavirus 2 RNA [facility] This lab was ordered by [facility] and reported by [facility]. ID Date Data Source [id number] 02/23/2020 01:27:00 PM EDT [facility] Name Value Range Interpretation Code Description Data Leida rce(s) Supporting Document(s) SARS coronavirus 2 RNA [facility] This lab was ordered by [facility] and reported by [facility]. ID Date Data Source [id number] 02/16/2020 03:18:00 PM EDT [facility] Name Value Range Interpretation Code Description Data Leida rce(s) Supporting Document(s) SARS coronavirus 2 RNA [facility] This lab was ordered by [facility] and reported by [facility]. ID Date Data Source [id number] 02/09/2020 03:16:00 PM EDT [facility] Name Value Range Interpretation Code Description Data Leida rce(s) Supporting Document(s) SARS coronavirus 2 RNA [facility] This lab was ordered by [facility] and reported by [facility]. ID Date Data Source [id number] 02/02/2020 01:35:00 PM EDT [facility] Name Value Range Interpretation Code Description Data Leida rce(s) Supporting Document(s) SARS CORONAVIRUS 2 RNA [facility] This lab was ordered by [facility] and reported by [facility]. ID Date Data Source [id number] 01/26/2020 11:34:00 AM EDT [facility] Name Value Range Interpretation Code Description Data Leida rce(s) Supporting Document(s) SARS CORONAVIRUS 2 RNA [facility] This lab was ordered by [facility] and reported by [facility]. ID Date Data Source [id number] 01/19/2020 10:59:00 AM EDT [facility] Name Value Range Interpretation Code Description Data Leida rce(s) Supporting Document(s) SARS CORONAVIRUS 2 RNA [facility] This lab was ordered by [facility] and reported by [facility]. ID Date Data Source [id number] 01/12/2020 05:30:00 AM EDT [facility] Name Value Range Interpretation Code Description Data Leida rce(s) Supporting Document(s) SARS CORONAVIRUS 2 RNA [facility] This lab was ordered by [facility] and reported by [facility]. ID Date Data Source [id number] 01/08/2020 11:20:00 AM EDT [facility] Name Value Range Interpretation Code Description Data Leida rce(s) Supporting Document(s) SARS CORONAVIRUS 2 RNA [facility] This lab was ordered by [facility] and reported by [facility]. ID Date Data Source [id number] 01/05/2020 11:49:00 AM EDT [facility] Name Value Range Interpretation Code Description Data Leida rce(s) Supporting Document(s) SARS CORONAVIRUS 2 RNA [facility] This lab was ordered by [facility] and reported by [facility]. ID Date Data Source [id number] 12/24/2019 02:51:00 PM EDT [facility] Name Value Range Interpretation Code Description Data Leida rce(s) Supporting Document(s) SARS CORONAVIRUS 2 RNA [facility] This lab was ordered by [facility] and reported by [facility]. ID Date Data Source [id number] 12/16/2019 06:18:00 AM EDT [facility] Name Value Range Interpretation Code Description Data Leida rce(s) Supporting Document(s) SARS CORONAVIRUS 2 RNA [facility] This lab was ordered by [facility] and reported by [facility]. ID Date Data Source [id number] 11/26/2019 11:55:00 AM EDT [facility] ([facility]) Name Value Range Interpretation Code Description Data Leida rce(s) Supporting Document(s) Red Blood Count 5.12 10 4.00-5.40 Normal (applies to non-numeric results) [facility] ([facility]) White Blood Count 5.0 10 4.0-10.0 Normal (applies to non-numeri c results) [facility] ([facility]) Hemoglobin 14.8 g/dL 12.0-15.5 Normal (applies to non-numeric resul ts) [facility] ([facility]) Hematocrit 46.1 % 36.0-47.0 Normal (applies to non-numeric resul ts) [facility] ([facility]) Mean Corpuscular Volume 90.0 fl 80.0-96.0 Normal ( applies to non-numeric results) [facility] ([facility]) Mean Corpuscular Hemoglobin 28.9 pg 27.0-33.0 Norm al (applies to non-numeric results) [facility] ([facility]) Red Cell Distribution Width 12.8 % 11.5-14.5 Norm al (applies to non-numeric results) [facility] ([facility]) Mean Corpuscular HGB Conc 32.1 g/dL 32.0-36.5 Normal (applies to non-numeric results) [facility] ([facility]) Platelet Count, Automated 177 10 150-450 Normal (applies to non-numeric results) [facility] ([facility]) Neutrophils % 56.3 % 36.0-66.0 Normal (applies to non-numeric re sults) [facility] ([facility]) Lymph % 32.9 % 24.0-44.0 Normal (applies to non-numeric resul ts) [facility] ([facility]) Baso % 0.6 % 0.0-1.0 Normal (applies to non-numeric resul ts) [facility] ([facility]) Immature Granulocyte % 0.2 % 0-3.0 Normal (applies to non-n umeric results) [facility] ([facility]) [place] % 8.6 % 0.0-5.0 Above high normal [facility] ([facility]) Eos % 1.4 % 0.0-3.0 Normal (applies to non-numeric resul ts) [facility] ([facility]) Neutrophils # 2.8 10 1.5-8.5 Normal (applies to non-numeric re sults) [facility] ([facility]) Nucleated Red Blood Cell % 0.0 % 0-0 Normal (applies to n on-numeric results) [facility] ([facility]) Lymph # 1.7 10 1.5-5.0 Normal (applies to non-numeric resul ts) [facility] ([facility]) [place] # 0.4 10 0.0-0.8 Normal (applies to non-numeric resul ts) [facility] ([facility]) Eos # 0.1 10 0.0-0.5 Normal (applies to non-numeric resul ts) [facility] ([facility]) Baso # 0.0 10 0.0-0.2 Normal (applies to non-numeric resul ts) [facility] ([facility]) ID Date Data Source [id number] 11/26/2019 11:55:00 AM EDT [facility] ([facility]) Name Value Range Interpretation Code Description Data Leida rce(s) Supporting Document(s) Calcidiol [Mass/volume] in Serum or Plasma 28.0 ng/mL 30.0- 100.0 Below low normal [facility] ([facility]) <content>note:<nlbl:demographic_changed> </content>
<content></content> ID Date Data Source [id number] 11/26/2019 11:55:00 AM EDT [facility] ([facility]) Name Value Range Interpretation Code Description Data Leida rce(s) Supporting Document(s) Free T4 1.39 ng/dL 0.76-1.46 Normal (applies to non-numeric resul ts) [facility] ([facility]) Thyroid Stimulating Hormone 1.130 uIU/ML 0.358-3.740 Norm al (applies to non- numeric results) [facility] ([facility]) ID Date Data Source [id number] 08/28/2019 09:35:00 AM EST [facility] ([facility]) Name Value Range Interpretation Code Description Data Leida rce(s) Supporting Document(s) Thyroid Stimulating Hormone 0.871 uIU/ML 0.358-3.740 Norm al (applies to non- numeric results) [facility] ([facility]) Free T4 1.04 ng/dL 0.76-1.46 Normal (applies to non-numeric resul ts) [facility] ([facility]) ID Date Data Source [id number] 08/28/2019 09:35:00 AM EST [facility] ([facility]) Name Value Range Interpretation Code Description Data Leida rce(s) Supporting Document(s) Glucose, Fasting 81 mg/dL 70-100 Normal (applies to non-numeric results) [facility] ([facility]) Creatinine For GFR 0.71 mg/dL 0.55-1.30 Normal (applies to non -numeric results) [facility] ([facility]) Blood Urea Nitrogen 12 mg/dL 7-18 Normal (applies to non-nume kervin results) [facility] ([facility]) Sodium Level 141 meq/L 136-145 Normal (applies to non-numeric res ults) [facility] ([facility]) Glomerular Filtration Rate Laboratory test result Normal (applies to non- numeric results) [facility] ([facility]) <content>Units are mL/min/1.73 m2</content>
<content></content>
<content>Chronic Kidney Disease Staging per NKF:</content>
<content></content>
<content>Stage I & II GFR >=60 Normal to Mildly Decreased</content>
<content>Stage III GFR 30- 59 Moderately Decreased</content>
<content>Stage IV GFR 15-29 Severely Decreased</content>
<content>Stage V GFR <15 Very Little GFR Left</content>
<content>ESRD GFR <15 on BLOOD DONOR RECRUITER SUPERVISOR</content>
<content></content> Chloride Level 107 meq/L 98-107 Normal (applies to non-numeric r esults) [facility] ([facility]) Carbon Dioxide Level 28 meq/L 21-32 Normal (applies to non-num oscar results) [facility] ([facility]) Potassium Serum 4.5 meq/L 3.5-5.1 Normal (applies to non-numeric results) [facility] ([facility]) Calcium Level 9.2 mg/dL 8.5-10.1 Normal (applies to non-numeric re sults) [facility] ([facility]) Anion Gap 6 meq/L 8-16 Below low normal [facility] ( [facility]) Ast/Sgot 38 U/L 7-37 Above high normal [facility] ([facility]) Bilirubin,Total 0.8 mg/dL 0.2-1.0 Normal (applies to non-numeric results) [facility] ([facility]) Alkaline Phosphatase 57 U/L 45-117 Normal (applies to non-num oscar results) [facility] ([facility]) Total Protein 7.3 GM/DL 6.4-8.2 Normal (applies to non-numeric re sults) [facility] [facility]) Alt/SGPT 34 U/L 12-78 Normal (applies to non-numeric resul ts) [facility] ([facility]) Albumin 4.0 GM/DL 3.2-5.2 Normal (applies to non-numeric resul ts) [facility] ([facility]) Albumin/Globulin Ratio 1.21 1.00-1.93 Normal (applies to non-numeric results) [facility] ([facility]) ID Date Data Source [id number] 08/28/2019 09:35:00 AM EST [facility] ([facility]) Name Value Range Interpretation Code Description Data Leida rce(s) Supporting Document(s) White Blood Count 5.2 10 4.0-10.0 Normal (applies to non-numeri c results) [facility] ([facility]) Red Blood Count 4.85 10 4.00-5.40 Normal (applies to non-numeric results) [facility] ([facility]) Hemoglobin 13.9 g/dL 12.0-15.5 Normal (applies to non-numeric resul ts) [facility] ([facility]) Hematocrit 44.5 % 36.0-47.0 Normal (applies to non-numeric resul ts) [facility] ([facility]) Mean Corpuscular Hemoglobin 28.7 pg 27.0-33.0 Norm al (applies to non-numeric results) [facility] ([facility]) Mean Corpuscular Volume 91.8 fl 80.0-96.0 Normal ( applies to non-numeric results) [facility] ([facility]) Mean Corpuscular HGB Conc 31.2 g/dL 32.0-36.5 Below low normal [facility] ([facility]) Platelet Count, Automated 191 10 150-450 Normal (applies to non-numeric results) [facility] ([facility]) Red Cell Distribution Width 12.6 % 11.5-14.5 Norm al (applies to non-numeric results) [facility] ([facility]) Neutrophils % 53.7 % 36.0-66.0 Normal (applies to non-numeric re sults) [facility] ([facility]) Lymph % 34.5 % 24.0-44.0 Normal (applies to non-numeric resul ts) [facility] ([facility]) [place] % 9.1 % 0.0-5.0 Above high normal [facility] ([facility]) Eos % 2.1 % 0.0-3.0 Normal (applies to non-numeric resul ts) [facility] ([facility]) Nucleated Red Blood Cell % 0.0 % 0-0 Normal (applies to n on-numeric results) [facility] ([facility]) Immature Granulocyte % 0.2 % 0-3.0 Normal (applies to non-n umeric results) [facility] ([facility]) Baso % 0.4 % 0.0-1.0 Normal (applies to non-numeric resul ts) [facility] ([facility]) Neutrophils # 2.8 10 1.5-8.5 Normal (applies to non-numeric re sults) [facility] ([facility]) [place] # 0.5 10 0.0-0.8 Normal (applies to non-numeric resul ts) [facility] ([facility]) Lymph # 1.8 10 1.5-5.0 Normal (applies to non-numeric resul ts) [facility] ([facility]) Baso # 0.0 10 0.0-0.2 Normal (applies to non-numeric resul ts) [facility] ([facility]) Eos # 0.1 10 0.0-0.5 Normal (applies to non-numeric resul ts) [facility] ([facility]) ID Date Data Source [id number] 08/04/2019 10:46:00 AM EST [facility] ([facility]) Name Value Range Interpretation Code Description Data Leida rce(s) Supporting Document(s) Cytology report of Cervical or vaginal smear or scrapi ng Cyto stain.thin prep <pending> [facility] ([facility]) ID Date Data Source [id number] 08/06/2019 02:09:00 PM [facility] Name Value Range Interpretation Code Description Data Leida rce(s) Supporting Document(s) PAP SMEAR THIN PREP [facility] _PAP SMEAR THIN PREP_ SEE SEPARAT E REFERENCE LAB REPORT ID Date Data Source [id number] 08/06/2019 02:06:00 PM [facility] Name Value Range Interpretation Code Description Data Leida rce(s) Supporting Document(s) SOURCE: R [facility] Chlamydia trachomatis rRNA [Presence] in Unspecified specimen by Probe and target amplification method Negative Negative [facility] Neisseria gonorrhoeae rRNA [Presence] in Unspecified specimen by Probe and target amplification method Negative Negative [facility] ID Date Data Source [id number] 07/08/2019 07:38:00 AM EST [facility] ([facility]) Name Value Range Interpretation Code Description Data Leida rce(s) Supporting Document(s) Choriogonadotropin.beta subunit [Moles/volume] in Serum or Plasm a < 5.0 Normal (applies to non-numeric results) [facility] ([facility]) <content>QUANTITATIVE RESULT QU ALITATIVE INTERPRETATION</content>
<content> </content>
<content><5.0 IU/L NEGATIVE</content>
<content>5.0 - 25.0 IU/L INDETERMINATE</content>
<content>>25.0 IU/L POSITIVE</content>
<content></content> Procedure Social History Code Duration Value Status Description Data Source(s ) Smoking 05/14/2020 12:00:00 AM EDT Never Smoker completed Never S moker eCW1 ([facility]) Smoking 02/04/2020 12:00:00 AM EDT Patient has never smoked co mpleted Patient has never smoked [facility] ([facility]) Smoking 10/01/2019 12:00:00 AM EST Never Smoker completed Never S triciaker eCW1 ([facility]) Vital Signs ID Date Data Source UNK Name Value Range Interpretation Code Description Data Source(s) [place] body weight 100 [lb_av] 100 [lb_av] [facility] ([facility]) Oxygen saturation in Arterial blood by Pulse oximetry 93 % 93 % [facility] Body temperature 98.2 [degF] 98.2 [degF] [facility] ([facility]) Respiratory rate 16 /min 16 /min [facility] ( [facility]) Heart rate 90 /min 90 /min [facility] ([facility]) Body mass index (BMI) [Ratio] 30.2 kg/m2 30.2 k g/m2 [facility] ([facility]) Body weight 148.38 [lb_av] 148.38 [lb_av] [facility] ([facility]) Body height 58.8 [in_i] 58.8 [in_i] [facility] ([facility]) 4'10.80" Diastolic blood pressure 70 mm[Hg] 70 mm[Hg] [facility] ([facility]) Systolic blood pressure 115 mm[Hg] 115 mm[Hg] M [facility] ([facility]) [place] body weight 100 [lb_av] 100 [lb_av] [facility] ([facility]) Oxygen saturation in Arterial blood by Pulse oximetry 98 % 98 % [facility] ([facility]) Body temperature 98.2 [degF] 98.2 [degF] [facility] ([facility]) Respiratory rate 16 /min 16 /min [facility] ( [facility]) Heart rate 81 /min 81 /min [facility] ([facility]) Body mass index (BMI) [Ratio] 30.1 kg/m2 30.1 k g/m2 [facility] ([facility]) Body weight 148.00 [lb_av] 148.00 [lb_av] [facility] ([facility]) Body height 58.8 [in_i] 58.8 [in_i] [facility] ([facility]) 4'10.80" Diastolic blood pressure 70 mm[Hg] 70 mm[Hg] [facility] ([facility]) Systolic blood pressure 102 mm[Hg] 102 mm[Hg] M [facility] ([facility]) [place] body weight 100 [lb_av] 100 [lb_av] [facility] T ([facility]) Oxygen saturation in Arterial blood by Pulse oximetry 97 % 97 % [facility] ([facility]) Body temperature 99.4 [degF] 99.4 [degF] [facility] ([facility]) Respiratory rate 18 /min 18 /min [facility] ( [facility]) Heart rate 69 /min 69 /min [facility] ([facility]) Body mass index (BMI) [Ratio] 29.7 kg/m2 29.7 k g/m2 [facility] Body weight 146.12 [lb_av] 146.12 [lb_av] [facility] ([facility]) Body height 58.8 [in_i] 58.8 [in_i] [facility] ([facility]) 410.80" Diastolic blood pressure 72 mm[Hg] 72 mm[Hg] [facility] ([facility]) Systolic blood pressure 110 mm[Hg] 110 mm[Hg] [facility] ([facility]) [place] body weight 100 [lb_av] 100 [lb_av] [facility] T ([facility], ) Body mass index (BMI) [Ratio] 28.7 kg/m2 28.7 k g/m2 [facility] ([facility], ) Body weight 142.00 [lb_av] 142.00 [lb_av] [facility] T ([facility], ) Body height 59 [in_i] 59 [in_i] [facility] ([facility], ) 4'11" Oxygen saturation in Arterial blood by Pulse oximetry 99 % 99 % [facility] ([facility]) Body temperature 99.7 [degF] 99.7 [degF] [facility] ([facility]) Respiratory rate 18 /min 18 /min [facility] ( [facility]) Heart rate 88 /min 88 /min [facility] ([facility]) Body mass index (BMI) [Ratio] 29.2 kg/m2 29.2 k g/m2 [facility] ([facility]) Body weight 143.50 [lb_av] 143.50 [lb_av] [facility] ([facility]) Body height 58.8 [in_i] 58.8 [in_i] [facility] ([facility]) " Diastolic blood pressure 78 mm[Hg] 78 mm[Hg] [facility] ([facility]) Systolic blood pressure 122 mm[Hg] 122 mm[Hg] M [facility] ([facility]) Oxygen saturation in Arterial blood by Pulse oximetry 99 % 99 % [facility] ([facility]) Body temperature 97.8 [degF] 97.8 [degF] [facility] ([facility]) Respiratory rate 16 /min 16 /min [facility] ( [facility]) Heart rate 83 /min 83 /min [facility] ([facility]) Body mass index (BMI) [Ratio] 28.7 kg/m2 28.7 k g/m2 [facility] ([facility]) Body weight 141.00 [lb_av] 141.00 [lb_av] [facility] ([facility]) Body height 58.8 [in_i] 58.8 [in_i] [facility] ([facility]) ." Diastolic blood pressure 78 mm[Hg] 78 mm[Hg] [facility] ([facility]) Systolic blood pressure 118 mm[Hg] 118 mm[Hg] M [facility] ([facility]) Oxygen saturation in Arterial blood by Pulse oximetry 99 % 99 % [facility] ([facility]) Body temperature 99.5 [degF] 99.5 [degF] [facility] ([facility]) Respiratory rate 18 /min 18 /min [facility] ( [facility]) Heart rate 75 /min 75 /min [facility] ([facility]) Body mass index (BMI) [Ratio] 28.7 kg/m2 28.7 k g/m2 [facility] ([facility]) Body weight 141.12 [lb_av] 141.12 [lb_av] [facility] ([facility]) Body height 58.8 [in_i] 58.8 [in_i] [facility] ([facility]) 4'10.80" Systolic blood pressure 122 mm[Hg] 122 mm[Hg] M [facility] ([facility]) Body weight 61.690 kg 61.690 kg [facility] ([facility], ) Body mass index (BMI) [Ratio] 27.5 kg/m2 27.5 k g/m2 [facility] ([facility]) Body weight 136.00 [lb_av] 136.00 [lb_av] [facility], ) Body height 59 [in_i] 59 [in_i] [facility] ([facility]) 4'11" Body temperature 97.4 [degF] 97.4 [degF] [facility] ([facility], ) Oxygen saturation in Arterial blood by Pulse oximetry 99 % 99 % [facility] ([facility]) Body temperature 98.8 [degF] 98.8 [degF] [facility] ([facility]) Respiratory rate 18 /min 18 /min [facility] ( [facility]) Heart rate 92 /min 92 /min [facility] ([facility]) Body mass index (BMI) [Ratio] 28.3 kg/m2 28.3 k g/m2 [facility] ([facility]) Body weight 139.00 [lb_av] 139.00 [lb_av] [facility] ([facility]) Body height 58.8 [in_i] 58.8 [in_i] [facility] ([facility]) 4'10.80" Diastolic blood pressure 74 mm[Hg] 74 mm[Hg] [facility] ([facility]) Systolic blood pressure 122 mm[Hg] 122 mm[Hg] M [facility] ([facility]) Oxygen saturation in Arterial blood by Pulse oximetry 97 % 97 % [facility] ([facility]) Body temperature 98.7 [degF] 98.7 [degF] [facility] ([facility]) Respiratory rate 18 /min 18 /min [facility] ( [facility]) Heart rate 85 /min 85 /min [facility]) Body mass index (BMI) [Ratio] 28.7 kg/m2 28.7 k g/m2 [facility] ([facility]) Body weight 141.25 [lb_av] 141.25 [lb_av] [facility] ([facility]) Body height 58.8 [in_i] 58.8 [in_i] [facility] ([facility]) 4'10.80" Diastolic blood pressure 68 mm[Hg] 68 mm[Hg] [facility] ([facility]) Systolic blood pressure 114 mm[Hg] 114 mm[Hg] M [facility] ([facility]) Diastolic blood pressure 82 mm[Hg] 82 mm[Hg] eCW1 ([facility]) Systolic blood pressure 118 mm[Hg] 118 mm[Hg] e CW1 ([facility]) Body mass index (BMI) [Ratio] 28.48 kg/m2 28.48 kg/m2 eCW1 ([facility]) Body height [in_us] eCW1 ([facility], 1928–1983) Body weight Measured 141 [lb_av] 141 [lb_av] eC W1 ([facility]) Diastolic blood pressure 72 mm[Hg] 72 mm[Hg] eCW1 ([facility]) Systolic blood pressure 140 mm[Hg] 140 mm[Hg] e CW1 ([facility]) Body mass index (BMI) [Ratio] 28.6 kg/m2 28.6 k g/m2 eCW1 ([facility]) Body height [in_us] eCW1 ([facility], [facility]) Body weight Measured 141.6 [lb_av] 141.6 [lb_av ] eCW1 ([facility]) Oxygen saturation in Arterial blood by Pulse oximetry 97 % 97 % [facility] ([facility]) Body temperature 99.2 [degF] 99.2 [degF] [facility] ([facility]) Respiratory rate 18 /min 18 /min [facility] ( [facility]) Heart rate 69 /min 69 /min [facility] ([facility]) Body mass index (BMI) [Ratio] 28.5 kg/m2 28.5 k g/m2 [facility] ([facility]) Body weight 140.25 [lb_av] 140.25 [lb_av] [facility] ([facility]) Body height 58.8 [in_i] 58.8 [in_i] [facility] ([facility]) 4'10.80" Diastolic blood pressure 68 mm[Hg] 68 mm[Hg] [facility] ([facility]) Systolic blood pressure 110 mm[Hg] 110 mm[Hg] M [facility] ([facility]) Body surface area 1.58 m2 1.58 m2 [facility] ([facility]) Body mass index (BMI) [Ratio] 28.1 kg/m2 28.1 k g/m2 [facility] ([facility]) Body height 59 [in_i] 59 [in_i] [facility] ([facility]) 4'11" Body weight 63.050 kg 63.050 kg [facility] ([facility]) Body weight 139.00 [lb_av] 139.00 [lb_av] [facility] T ([facility]) Heart rate 59 /min 59 /min [facility] ([facility]) Diastolic blood pressure 84 mm[Hg] 84 mm[Hg] [facility] ([facility]) Systolic blood pressure 133 mm[Hg] 133 mm[Hg] M [facility] ([facility]) Patient Treatment Plan of Care Planned Activity Planned Date Details Description Data Source (s) medroxyprogesterone acetate 150 MG/ML Injectable Suspe nsion [Depo-Provera] 09/11/2019 12:00:00 AM EST eCW1 ([facility], 1928–1983)
[2020-09-02] MEDS ORDERED: BRIN10TA4 PO (06:43)
[2020-09-02] MEDS ORDERED: ACETAMINOPHEN 325 MG TAB PO ONE (07:15)
[2020-09-02] MEDS ORDERED: KETOROLAC 30 MG/ML 1ML VIAL IM ONE (07:15)
--- OUTSIDE RECORDS SUMMARY | 2020-09-02 07:35 | CCD ---
Author Author [facility] Address Unknown Phone Unavailable Care Team Providers Care Advertising Statistical Clerk Name Role Phone OSMAN RON MD Unavailable [...] ARIADNEOSMAN WELLS MD Unavailable Unavailable ARIADNE, OSMAN MD Unavailable [...] Unavailable Unavailable FRANCHESKA-VILMA, JAYY DO Unavailable Unavailable GINYARD, Farideh FERRO MD Unavailable [...] is protected by Article 27-F of the [place] Public Health law. If you continue you may have access to information: Regarding HIV / AIDS; Provided by facilities licensed or operated by the [facility] Office of Mental Health; or Provided by the [facility] Office for People With Developmental Disabilities. If such information is present, then the following [facility] mandated warning applies: This information has [...] law may result in a fine or senior living sentence or both. A general authorization for [...] Outpatient Attender: OSMAN RON MD Main office [facility] 08/12/2020 08:00:00 AM EST MED[facility] ([facility]) Outpatient Attender: JAYY MCCLENDON [facility] 06/01/2020 03:40:00 PM EDT [facility] ([facility]) Outpatient Attender: JAYY MCCLENDON [facility] 05/26/2020 03:40:00 PM EDT [facility] ([facility]) ([facility] Nurse Visit [address] [place] [phone] 05/14/2020 12:00:00 AM EDT eCW1 ([facility]) Outpatient Attender: Holden Hopkins/Serene/Ludin/Re indl 04/28/2020 08:50:00 AM EDT [facility] ([facility] Outpatient Attender: JAYY MCCLENDON [facility] 04/27/2020 02:00:00 PM EDT [facility] ([facility]) Outpatient Attender: Holden Hopkins/Serene/Ludin/Re indl 04/20/2020 10:40:00 AM EDT [facility] ([facility] Outpatient Attender: Holden Hopkins/Serene/Ludin/Re indl 03/30/2020 09:50:00 AM EDT [facility] ([facility] Outpatient Attender: OSMAN RON MD [facility] 03/29/2020 02:00:00 PM EDT [facility] ([facility]) Outpatient Attender: JAYY MCCLENDON [facility] 03/23/2020 01:30:00 PM EDT [facility] ([facility]) Outpatient Attender: JAYY MCCLENDON [facility] 03/11/2020 01:00:00 PM EDT [facility] ([facility]) Outpatient Attender: JAYY MCCLENDON [facility] 03/09/2020 01:10:00 PM EDT [facility] ([facility]) Outpatient Attender: Holden Hopkins/[place]/Ludin/Re indl 03/09/2020 10:10:00 AM EDT [facility] ([facility] ([facility]) [facility] Nurse Visit [address] [place] [address] 02/23/2020 12:00:00 AM EDT eCW1 ([facility]) Outpatient Attender: Holden Hopkins/Serene/Ludin/Re indl 02/18/2020 08:20:00 AM EDT [facility] ([facility] Outpatient Attender: JAYY MCCLENDON [facility] 02/04/2020 10:00:00 AM EDT [facility] ([facility]) [facility] [address] [place] [address] 12/08/2019 12:00:00 AM EDT eCW1 ([facility]) Outpatient Attender: JAYY MCCLENDON [facility] 11/26/2019 11:00:00 AM EDT [facility] ([facility]) Outpatient 10/02/2019 07:28:00 PM EST [facility] Radiology Imaging [facility] Dermatology [address] [place] [address] 10/01/2019 12:00:00 AM EST eCW1 ([facility]) [facility] [address] [place] [address] 09/17/2019 12:00:00 AM EST eCW1 ([facility]) [facility] [address] [place] [address] 09/11/2019 12:00:00 AM EST eCW1 ([facility]) Outpatient Attender: Kamran ALANIS [facility] 08/26/2019 03:00:00 PM EST [facility] ([facility]) Outpatient Attender: PILLO BURKS MD 09:46:00 AM EST 08/04/2019 09:46:00 AM EST [facility] Outpatient Attender: PILLO BURKS MD Family Practice 08:30:00 AM EST MED[facility] ([facility]) Immunizations Vaccine Date Status Description Data Source(s) Depo-Provera 150mg/1mL (Medroxy-Progestrone Acetate) 11:54:00 AM EDT completed eCW1 ([facility]) Depo-Provera 150mg/1mL (Medroxy-Progestrone Acetate) 03:30:00 PM EDT completed eCW1 ([facility]) Depo-Provera 150mg/1mL (Medroxy-Progestrone Acetate) 03:30:00 PM EDT completed eCW1 ([facility]) Depo-Provera 150mg/1mL (Medroxy-Progestrone Acetate) 03:18:00 PM EDT completed eCW1 ([facility]) Depo-Provera 150mg/1mL (Medroxy-Progestrone Acetate) 03:18:00 PM EDT completed eCW1 ([facility]) Depo-Provera 150mg/1mL (Medroxy-Progestrone Acetate) 03:18:00 PM EDT completed eCW1 ([facility]) Depo-Provera 150mg/1mL (Medroxy-Progestrone Acetate) 02:37:00 PM EST completed eCW1 ([facility]) Depo-Provera 150mg/1mL (Medroxy-Progestrone Acetate) 02:37:00 PM EST completed eCW1 ([facility]) Depo-Provera 150mg/1mL (Medroxy-Progestrone Acetate) 02:37:00 PM EST completed eCW1 ([facility]) Medications Medication Brand Name Start Date Product Form Dose Route Admi nistrative Instructions Pharmacy Instructions Status Indications Reaction Description Data Source(s) Trintellix Trintellix 06/01/2020 12:00:00 AM EDT ORAL a ctive [facility] ([facility]) Ondansetron 8 MG Disintegrating Oral Tablet Ondansetron 05/26/2020 12:00:00 AM EDT active MEDENT ([facility]) Sertraline 50 MG Oral Tablet [Zoloft] Zoloft 04/27/2020 12:00:00 AM EDT ORAL completed [facility] ([facility]) zonisamide 50 MG Oral Capsule Zonisamide 03/29/2020 12:00:00 AM EDT ORAL active MED[facility] ([facility]) zonisamide 25 MG Oral Capsule Zonisamide 03/29/2020 12:00:00 AM EDT ORAL active [facility] ([facility]) Escitalopram 5 MG Oral Tablet [Lexapro] Lexapro 03/09/2020 12:00:0 0 AM EDT ORAL completed MED[facility] ([facility]) Amoxicillin 875 MG / Clavulanate 125 MG Oral Tablet Am oxicillin/Clavulanate Potassium 02/04/2020 12:00:00 AM EDT ORAL completed [facility] ([facility]) Escitalopram 10 MG Oral Tablet [Lexapro] Lexapro 02/04/2020 12:00: 00 AM EDT ORAL completed MED[facility] ([facility]) Cholecalciferol 2000 UNT Oral Capsule Vitamin D3 Super Stren gth 11/26/2019 12:00:00 AM EDT ORAL active M EDENT ([facility]) Trazodone Hydrochloride 50 MG Oral Tablet Trazodone HCL 11/17/2019 12:00:00 AM EDT ORAL active MED[facility] ([facility]) 200 ACTUAT Albuterol 0.09 MG/ACTUAT Metered Dose Inhal er [Ventolin] Ventolin HFA 11/17/2019 12:00:00 AM EDT RESPIRATORY active [facility] ([facility]) medroxyprogesterone acetate 150 MG/ML In jectable Suspension [Depo-Provera] Depo- Provera 150 MG/ML Depo-Provera 150 MG/ML 09/11/2019 12:00:00 AM EST active 1 ml eCW1 ([facility]) medroxyprogesterone acetate 150 MG/ML In jectable Suspension [Depo-Provera] Depo- Provera 150 MG/ML Depo-Provera 150 MG/ML 09/11/2019 12:00:00 AM EST 1.0 {ml} active Depo-Provera 150 MG/ ML eCW1 ([facility]) medroxyprogesterone acetate 150 MG/ML In jectable Suspension [Depo-Provera] Depo- Provera 150 MG/ML Depo-Provera 150 MG/ML 09/11/2019 12:00:00 AM EST active 1 ml eCW1 ([facility]) medroxyprogesterone acetate 150 MG/ML In jectable Suspension [Depo-Provera] Depo- Provera 150 MG/ML Depo-Provera 150 MG/ML 09/11/2019 12:00:00 AM EST 1.0 {ml} active Depo-Provera 150 MG/ ML eCW1 ([facility]) Insurance Providers Payer name Policy type / Coverage type Policy ID Covered libertarian ID Covered libertarian's relationship to cornejo Policy Cornejo Plan Information [facility] [id number] [facility] [id number] SELF PAY ONLY [id number] [employer] O [id number] S [id number] PMA INSURANCE GROUP O UNAVAILABLE S UNAVAILABLE [employer] [place] O [id number] S [id number] [facility] [place] [id number] [facility] Commercial [id number] Family Dependent [id number] Problems, Conditions, and Diagnoses Code Display Name Description Problem Type Effective Dates Data Source(s) 14024727 Headache Headache Problem 03/29/2020 12:00:00 AM ED T [facility] ([facility] ) D22.30 [id number] Melanocytic nevi of face Problem 10/27/2019 12:00:00 AM EDT eCW1 ([facility]) D23.9 [id number] Dermatofibroma Problem 10/27/2019 12:00:00 A M EDT eCW1 ([facility]) D22.30 [id number] Melanocytic nevi of face Problem 10/27/2019 12:00:00 AM EDT eCW1 ([facility]) D23.9 [id number] Dermatofibroma Problem 10/27/2019 12:00:00 A M EDT eCW1 ([facility]) N944 Primary dysmenorrhea Primary dysmenorrhea Diagnosis 08/04/2019 09:46:00 AM [facility] Surgeries/Procedures Procedure Description Date Indications Data Source(s) Injection, medroxyprogesterone acetate for contraceptive use , 150 mg 05/14/2020 12:00:00 AM EDT eCW1 ([facility]) INJECTION 1 TENDON SHEATH/LIGAMENT APONEUROSIS 020 12:00:00 AM EDT [facility] ([facility] Magnetic Resonance Angiogtaphy Head W/O Contrast Material(S) 04/14/2020 12:00:00 AM EDT [facility] ([facility] Magnetic Resonance Angiogtaphy Head W/O Contrast Material(S) 04/14/2020 12:00:00 AM EDT [facility] ([facility]) Magnetic Resonance Angiography Neck W/O Contrast Materials 04/14/2020 12:00:00 AM EDT [facility] ([facility]) Magnetic Resonance Angiography Neck W/O Contrast Materials 04/14/2020 12:00:00 AM EDT [facility] ([facility]) MRI BRAIN BRAIN STEM W/O CONTRAST MATERIAL 04/14/2020 12:00:00 AM EDT [facility] ([facility]) MRI BRAIN BRAIN STEM W/O CONTRAST MATERIAL 04/14/2020 12:00:00 AM EDT [facility] ([facility]) Omt 7-8 Body Regions 03/11/2020 12:00:00 AM EDT [facility] ([facility]) Injection, medroxyprogesterone acetate for contraceptive use , 150 mg 02/23/2020 12:00:00 AM EDT eCW1 ([facility]) THER/PROPH/DIAG INJ, SC/IM 12/08/2019 12:00:00 AM EDT eCW1 ([facility]) Injection, medroxyprogesterone acetate, 1 mg 0 12:00:00 AM EST eCW1 ([facility]) URINE TEST 09/17/2019 12:00:00 AM EST eCW1 ([facility]) Results ID Date Data Source [id number] 08/26/2020 11:45:00 AM EST [facility] Name Value Range Interpretation Code Description Data Leida rce(s) Supporting Document(s) SARS coronavirus 2 RNA [facility] This [facility] was [facility] by [facility] and reported by [facility]. ID Date Data Source [id number] 08/12/2020 12:00:00 AM EST [facility] Name Value Range Interpretation Code Description Data Leida rce(s) Supporting Document(s) SARS-CoV-2 (COVID-19) RNA [Presence] in Respiratory specimen by ADAN with probe detection Not Detected [facility] This lab was ordered by [facility] and reported by [employer] ID Date Data Source [id number] 08/09/2020 11:55:00 AM EST [facility] Name Value Range Interpretation Code Description Data Leida rce(s) Supporting Document(s) SARS coronavirus [address] [facility] This lab was ordered by [facility] and reported by [facility]. ID Date Data Source [id number] 05/27/2020 11:25:00 AM EDT [facility] ([facility]) Name Value Range Interpretation Code Description Data Leida rce(s) Supporting Document(s) Laboratory test finding (navigational concept) Laboratory test result [facility] ([facility]) Test: COVID-19 Nasal/Naspharynx Result: NOT DETECTED Reference Units: Not detected Note: Please consider re-collection of a new specimen, if clinically indicated. Note: The COVID-19 assay has been FDA cleared by the U.S. Food and Drug Administration under the Emergency Use Authorization (EUA). [facility] is designated as a high complexity laboratory by the Clinical Laboratory Improvement Amendments of 1988 (CLIA) and is qualified to perform this test. ASSAY INFORMATION: [id number]. Patient samples for this assay have been pooled. All positive samples have been individually repeated for confirmation. The pooling protocol is pending FDA review. ID Date Data Source [id number] 05/27/2020 12:00:00 AM EDT [facility] Name Value Range Interpretation Code Description [facility] Supporting Document(s) 2019-nCoV RNA XXX ADAN+probe-Imp [facility] This lab was ordered by [facility] and reported by [employer] ID Date Data Source [id number] 05/03/2020 12:00:00 PM EDT [facility] Name Value Range Interpretation Code Description Data [facility] Supporting Document(s) SARS coronavirus 2 RNA [facility] This lab was ordered by [facility] and reported by [facility]. ID Date Data Source [id number] 04/26/2020 02:29:00 PM EDT [facility] Name Value Range Interpretation Code Description Data Leida rce(s) Supporting Document(s) SARS coronavirus 2 RNA [facility] This lab was ordered by [facility] and reported by [facility]. ID Date Data Source [id number] 04/23/2020 10:52:00 AM EDT MED[facility] ([facility] Name Value Range Interpretation Code Description Data Leida rce(s) Supporting Document(s) Antinuclear Antibodies Direct Laboratory test result MEDENT ([facility], ) Performed at: [facility] [place] [id number] Personal Carer: Taryn Robledo MD, Phone: [phone] ID Date Data Source [id number] 04/23/2020 10:52:00 AM EDT MED[facility] ([facility] ) Name Value Range Interpretation Code Description Data Leida rce(s) Supporting Document(s) Thyrotropin [Units/volume] in Serum or Plasma 1.000 uIU/ML 0.358-3.74 0 MEDENT ([facility], ) <content>note:<nlbl:demographic_changed> </content>
<content></content> Rheumatoid factor [Units/volume] in Serum or Plasma Laboratory test result [facility] ([facility], ) <content>note:<nlbl:demographic_changed> </content>
<content></content> ID Date Data Source [id number] 04/23/2020 10:52:00 AM EDT [facility] ([facility] ) Name Value Range Interpretation Code Description Data Leida rce(s) Supporting Document(s) Blood Urea Nitrogen 12 mg/dL 7-18 MED[facility] ([facility] ) Glucose, Fasting 75 mg/dL 70-100 [facility] ([facility] ) Glomerular Filtration Rate Laboratory test result MED[facility] ([facility]) <content>Units are mL/min/1.73 m2</content>
<content></content>
<content>Chronic Kidney Disease Staging per NKF:</content>
<content></content>
<content>Stage I & II GFR >=60 Normal to Mildly Decreased</content>
<content>Stage III GFR 30- 59 Moderately Decreased</content>
<content>Stage IV GFR 15-29 Severely Decreased</content>
<content>Stage V GFR <15 Very Little GFR Left</content>
<content>ESRD GFR <15 on FINANCIAL ADMINISTRATIVE ASSISTANT</content>
<content></content> Creatinine For GFR 0.67 mg/dL 0.55-1.30 MEDENT ([facility], ) Chloride Level 108 meq/L 98-107 MED[facility] ([facility], ) Sodium Level 138 meq/L 136-145 MED[facility] ([facility]) Potassium Serum 4.8 meq/L 3.5-5.1 MED[facility] ([facility]) Calcium Level 9.6 mg/dL 8.5-10.1 MED[facility] ([facility], ) Carbon Dioxide Level 24 meq/L 21-32 MEDENT ([facility]) Anion Gap 6 meq/L 8-16 MED[facility] ([facility]) Alkaline Phosphatase 80 U/L 45-117 MED[facility] ([facility], ) Ast/Sgot 60 U/L 7-37 MED[facility] ([facility]) Alt/SGPT 47 U/L 12-78 MED[facility] ([facility]) Total Protein 7.8 GM/DL 6.4-8.2 MED[facility] ([facility], ) Albumin 4.0 GM/DL 3.2-5.2 MED[facility] ([facility]) Bilirubin,Total 1.0 mg/dL 0.2-1.0 MED[facility] ([facility]) Albumin/Globulin Ratio 1.1 1.2-2.2 [facility] ([facility]) ID Date Data Source [id number] 04/23/2020 10:52:00 AM EDT MED[facility] ([facility]) Name Value Range Interpretation Code Description Data Leida rce(s) Supporting Document(s) Erythrocyte sedimentation rate by 2H Westergren method 21 mm/hr 0-2 0 MED[facility] ([facility]) ID Date Data Source [id number] 04/23/2020 10:52:00 AM EDT [facility] ([facility]) Name Value Range Interpretation Code Description Data Leida rce(s) Supporting Document(s) Red Blood Count 5.21 10 4.00-5.40 MED[facility] ([facility]) Hemoglobin 14.9 g/dL 12.0-15.5 MEDENT ([facility]) White Blood Count 5.8 10 4.0-10.0 MEDENT ([facility]) Hematocrit 46.8 % 36.0-47.0 MED[facility] ([facility]) Mean Corpuscular Volume 89.8 fl 80.0-96.0 M EDENT ([facility]) Mean Corpuscular HGB Conc 31.8 g/dL 32.0-36.5 MED[facility] ([facility]) Red Cell Distribution Width 13.1 % 11.5-14.5 MED[facility] ([facility]) Mean Corpuscular Hemoglobin 28.6 pg 27.0-33.0 MED[facility] ([facility]) Platelet Count, Automated 213 10 150-450 MED[facility] ([facility]) Lymph % 32.4 % 24.0-44.0 MED[facility] ([facility]) Neutrophils % 57.2 % 36.0-66.0 MEDENT ([facility]) Baso % 0.5 % 0.0-1.0 MEDENT ([facility]) Eos % 1.4 % 0.0-3.0 MED[facility] ([facility]) Vance % 8.2 % 0.0-5.0 MEDENT ([facility]) Nucleated Red Blood Cell % 0.0 % 0-0 MED ENT ([facility]) Immature Granulocyte % 0.3 % 0-3.0 MED[facility] ([facility]) Lymph # 1.9 10 1.5-5.0 MED[facility] ([facility]) Neutrophils # 3.3 10 1.5-8.5 MED[facility] ([facility]) Vance # 0.5 10 0.0-0.8 [facility] Baso # 0.0 10 0.0-0.2 MED[facility] ([facility]) Eos # 0.1 10 0.0-0.5 MED[facility] ([facility]) ID Date Data Source [id number] 04/22/2020 02:39:00 PM EDT [facility] Name Value Range Interpretation Code Description Data Leida rce(s) Supporting Document(s) SARS coronavirus 2 RNA [facility] This lab was ordered by [facility] and reported by [facility]. ID Date Data Source [id number] 04/14/2020 12:00:00 PM EDT [facility] Name Value Range Interpretation Code Description Data Leida rce(s) Supporting Document(s) SARS coronavirus 2 RNA [facility] This lab was ordered by [facility] and reported by [facility]. ID Date Data Source [id number] 04/07/2020 06:40:00 AM EDT MED[facility] ([facility]) Name Value Range Interpretation Code Description Data Leida rce(s) Supporting Document(s) Glucose, Fasting 86 mg/dL 70-100 Normal (applies to non-numeric results) MED[facility] ([facility]) Creatinine For GFR 0.73 mg/dL 0.55-1.30 Normal (applies to non -numeric results) [facility] ([facility]) Blood Urea Nitrogen 13 mg/dL 7-18 Normal (applies to non-nume kervin results) [facility] ([facility]) Glomerular Filtration Rate Laboratory test result Normal (applies to non- numeric results) [facility] ([facility]) <content>Units are mL/min/1.73 m2</content>
<content></content>
<content>Chronic Kidney Disease Staging per NKF:</content>
<content></content>
<content>Stage I & II GFR >=60 Normal to Mildly Decreased</content>
<content>Stage III GFR 30- 59 Moderately Decreased</content>
<content>Stage IV GFR 15-29 Severely Decreased</content>
<content>Stage V GFR <15 Very Little GFR Left</content>
<content>ESRD GFR <15 on FINANCIAL ADMINISTRATIVE ASSISTANT</content>
<content></content> Sodium Level 140 meq/L 136-145 Normal (applies to non-numeric res ults) [facility] ([facility]) Chloride Level 110 meq/L 98-107 Above high normal [facility] ([facility]) Potassium Serum 4.2 meq/L 3.5-5.1 Normal (applies to non-numeric results) [facility] ([facility]) Calcium Level 9.1 mg/dL 8.5-10.1 Normal (applies to non-numeric re sults) [facility] ([facility]) Anion Gap 6 meq/L 8-16 Below low normal [facility] ( [facility]) Carbon Dioxide Level 24 meq/L 21-32 Normal (applies to non-num oscar results) [facility] ([facility]) ID Date Data Source [id number] 04/07/2020 05:27:00 AM EDT [facility] ([facility]) Name Value Range Interpretation Code Description Data Leida rce(s) Supporting Document(s) White Blood Count 5.8 10 4.0-10.0 Normal (applies to non-numeri c results) [facility] ([facility]) Red Blood Count 4.89 10 4.00-5.40 Normal (applies to non-numeric results) [facility] ([facility]) Hemoglobin 14.2 g/dL 12.0-15.5 Normal (applies to non-numeric resul ts) [facility] ([facility]) Hematocrit 43.5 % 36.0-47.0 Normal (applies to non-numeric resul ts) [facility] ([facility]) Mean Corpuscular HGB Conc 32.6 g/dL 32.0-36.5 Normal (applies to non-numeric results) [facility] ([facility]) Mean Corpuscular Volume 89.0 fl 80.0-96.0 Normal ( applies to non-numeric results) [facility] ([facility]) Mean Corpuscular Hemoglobin 29.0 pg 27.0-33.0 Norm al (applies to non-numeric results) [facility] ([facility]) Platelet Count, Automated 191 10 150-450 Normal (applies to non-numeric results) [facility] ([facility]) Neutrophils % 55.2 % 36.0-66.0 Normal (applies to non-numeric re sults) [facility] ([facility]) Red Cell Distribution Width 13.1 % 11.5-14.5 Norm al (applies to non-numeric results) [facility] ([facility]) Lymph % 32.6 % 24.0-44.0 Normal (applies to non-numeric resul ts) [facility] ([facility]) Eos % 2.4 % 0.0-3.0 Normal (applies to non-numeric resul ts) [facility] ([facility]) Vance % 9.1 % 0.0-5.0 Above high normal [facility] ([facility]) Baso % 0.5 % 0.0-1.0 Normal (applies to non-numeric resul ts) [facility] ([facility]) Nucleated Red Blood Cell % 0.0 % 0-0 Normal (applies to n on-numeric results) [facility] ([facility]) Immature Granulocyte % 0.2 % 0-3.0 Normal (applies to non-n umeric results) [facility] ([facility]) Lymph # 1.9 10 1.5-5.0 Normal (applies to non-numeric resul ts) [facility] ([facility]) Vance # 0.5 10 0.0-0.8 Normal (applies to non-numeric resul ts) [facility] ([facility]) Neutrophils # 3.2 10 1.5-8.5 Normal (applies to non-numeric re sults) [facility] ([facility]) Eos # 0.1 10 0.0-0.5 Normal (applies to non-numeric resul ts) [facility] ([facility]) Baso # 0.0 10 0.0-0.2 Normal (applies to non-numeric resul ts) [facility] ([facility]) ID Date Data Source [id number] 04/05/2020 11:43:00 AM EDT [facility] Name Value Range Interpretation Code Description Data Leida rce(s) Supporting Document(s) SARS coronavirus 2 RNA [facility] This lab was ordered by [facility] and reported by [facility]. ID Date Data Source [id number] 03/29/2020 02:24:00 PM EDT [facility] Name Value Range Interpretation Code Description Data Leida rce(s) Supporting Document(s) SARS coronavirus 2 RNA [facility] This lab was ordered by [facility] and reported by [facility]. ID Date Data Source [id number] 03/25/2020 02:35:00 PM EDT [facility] Name Value Range Interpretation Code Description Data Leida rce(s) Supporting Document(s) SARS coronavirus 2 RNA [facility] This lab was ordered by [facility] and reported by [facility]. ID Date Data Source [id number] 02/23/2020 01:27:00 PM EDT [facility] Name Value Range Interpretation Code Description Data Leida rce(s) Supporting Document(s) SARS coronavirus 2 RNA [facility] This lab was ordered by [facility] and reported by [facility]. ID Date Data Source [id number] 02/16/2020 03:18:00 PM EDT [facility] Name Value Range Interpretation Code Description Data Leida rce(s) Supporting Document(s) SARS coronavirus 2 RNA [facility] This lab was ordered by [facility] and reported by [facility]. ID Date Data Source [id number] 02/09/2020 03:16:00 PM EDT [facility] Name Value Range Interpretation Code Description Data Leida rce(s) Supporting Document(s) SARS coronavirus 2 RNA [facility] This lab was ordered by [facility] and reported by [facility]. ID Date Data Source [id number] 02/02/2020 01:35:00 PM EDT [facility] Name Value Range Interpretation Code Description Data Leida rce(s) Supporting Document(s) SARS CORONAVIRUS 2 RNA [facility] This lab was ordered by [facility] and reported by [facility]. ID Date Data Source [id number] 01/26/2020 11:34:00 AM EDT [facility] Name Value Range Interpretation Code Description Data Leida rce(s) Supporting Document(s) SARS CORONAVIRUS 2 RNA [facility] This lab was ordered by [facility] and reported by [facility]. ID Date Data Source [id number] 01/19/2020 10:59:00 AM EDT [facility] Name Value Range Interpretation Code Description Data Leida rce(s) Supporting Document(s) SARS CORONAVIRUS 2 RNA [facility] This lab was ordered by [facility] and reported by [facility]. ID Date Data Source [id number] 01/12/2020 05:30:00 AM EDT [facility] Name Value Range Interpretation Code Description Data Leida rce(s) Supporting Document(s) SARS CORONAVIRUS 2 RNA [facility] This lab was ordered by [facility] and reported by [facility]. ID Date Data Source [id number] 01/08/2020 11:20:00 AM EDT [facility] Name Value Range Interpretation Code Description Data Leida rce(s) Supporting Document(s) SARS CORONAVIRUS 2 RNA [facility] This lab was ordered by [facility] and reported by [facility]. ID Date Data Source [id number] 01/05/2020 11:49:00 AM EDT [facility] Name Value Range Interpretation Code Description Data Leida rce(s) Supporting Document(s) SARS CORONAVIRUS 2 RNA [facility] This lab was ordered by [facility] and reported by [facility]. ID Date Data Source [id number] 12/24/2019 02:51:00 PM EDT [facility] Name Value Range Interpretation Code Description Data Leida rce(s) Supporting Document(s) SARS CORONAVIRUS 2 RNA [facility] This lab was ordered by [facility] and reported by [facility]. ID Date Data Source [id number] 12/16/2019 06:18:00 AM EDT [facility] Name Value Range Interpretation Code Description Data Leida rce(s) Supporting Document(s) SARS CORONAVIRUS 2 RNA [facility] This lab was ordered by [facility] and reported by [facility]. ID Date Data Source [id number] 11/26/2019 11:55:00 AM EDT [facility] ([facility]) Name Value Range Interpretation Code Description Data Leida rce(s) Supporting Document(s) Red Blood Count 5.12 10 4.00-5.40 Normal (applies to non-numeric results) [facility] ([facility]) White Blood Count 5.0 10 4.0-10.0 Normal (applies to non-numeri c results) [facility] ([facility]) Hemoglobin 14.8 g/dL 12.0-15.5 Normal (applies to non-numeric resul ts) [facility] ([facility]) Hematocrit 46.1 % 36.0-47.0 Normal (applies to non-numeric resul ts) [facility] ([facility]) Mean Corpuscular Volume 90.0 fl 80.0-96.0 Normal ( applies to non-numeric results) [facility] ([facility]) Mean Corpuscular Hemoglobin 28.9 pg 27.0-33.0 Norm al (applies to non-numeric results) [facility] ([facility]) Red Cell Distribution Width 12.8 % 11.5-14.5 Norm al (applies to non-numeric results) [facility] ([facility]) Mean Corpuscular HGB Conc 32.1 g/dL 32.0-36.5 Normal (applies to non-numeric results) [facility] ([facility]) Platelet Count, Automated 177 10 150-450 Normal (applies to non-numeric results) [facility] ([facility]) Neutrophils % 56.3 % 36.0-66.0 Normal (applies to non-numeric re sults) [facility] ([facility]) Lymph % 32.9 % 24.0-44.0 Normal (applies to non-numeric resul ts) [facility] ([facility]) Baso % 0.6 % 0.0-1.0 Normal (applies to non-numeric resul ts) [facility] ([facility]) Immature Granulocyte % 0.2 % 0-3.0 Normal (applies to non-n umeric results) [facility] ([facility]) Vance % 8.6 % 0.0-5.0 Above high normal [facility] ([facility]) Eos % 1.4 % 0.0-3.0 Normal (applies to non-numeric resul ts) [facility] ([facility]) Neutrophils # 2.8 10 1.5-8.5 Normal (applies to non-numeric re sults) [facility] ([facility]) Nucleated Red Blood Cell % 0.0 % 0-0 Normal (applies to n on-numeric results) [facility] ([facility]) Lymph # 1.7 10 1.5-5.0 Normal (applies to non-numeric resul ts) [facility] ([facility]) Vance # 0.4 10 0.0-0.8 Normal (applies to non-numeric resul ts) [facility] ([facility]) Eos # 0.1 10 0.0-0.5 Normal (applies to non-numeric resul ts) [facility] ([facility]) Baso # 0.0 10 0.0-0.2 Normal (applies to non-numeric resul ts) [facility] ([facility]) ID Date Data Source [id number] 11/26/2019 11:55:00 AM EDT [facility] ([facility]) Name Value Range Interpretation Code Description Data Leida rce(s) Supporting Document(s) Calcidiol [Mass/volume] in Serum or Plasma 28.0 ng/mL 30.0- 100.0 Below low normal [facility] ([facility]) <content>note:<nlbl:demographic_changed> </content>
<content></content> ID Date Data Source [id number] 11/26/2019 11:55:00 AM EDT [facility] ([facility]) Name Value Range Interpretation Code Description Data Leida rce(s) Supporting Document(s) Free T4 1.39 ng/dL 0.76-1.46 Normal (applies to non-numeric resul ts) [facility] ([facility]) Thyroid Stimulating Hormone 1.130 uIU/ML 0.358-3.740 Norm al (applies to non- numeric results) [facility] ([facility]) ID Date Data Source [id number] 08/28/2019 09:35:00 AM EST [facility] ([facility]) Name Value Range Interpretation Code Description Data Leida rce(s) Supporting Document(s) Thyroid Stimulating Hormone 0.871 uIU/ML 0.358-3.740 Norm al (applies to non- numeric results) [facility] ([facility]) Free T4 1.04 ng/dL 0.76-1.46 Normal (applies to non-numeric resul ts) [facility] ([facility]) ID Date Data Source [id number] 08/28/2019 09:35:00 AM EST [facility] ([facility]) Name Value Range Interpretation Code Description Data Leida rce(s) Supporting Document(s) Glucose, Fasting 81 mg/dL 70-100 Normal (applies to non-numeric results) [facility] ([facility]) Creatinine For GFR 0.71 mg/dL 0.55-1.30 Normal (applies to non -numeric results) [facility] ([facility]) Blood Urea Nitrogen 12 mg/dL 7-18 Normal (applies to non-nume kervin results) [facility] ([facility]) Sodium Level 141 meq/L 136-145 Normal (applies to non-numeric res ults) [facility] ([facility]) Glomerular Filtration Rate Laboratory test result Normal (applies to non- numeric results) [facility] ([facility]) <content>Units are mL/min/1.73 m2</content>
<content></content>
<content>Chronic Kidney Disease Staging per NKF:</content>
<content></content>
<content>Stage I & II GFR >=60 Normal to Mildly Decreased</content>
<content>Stage III GFR 30- 59 Moderately Decreased</content>
<content>Stage IV GFR 15-29 Severely Decreased</content>
<content>Stage V GFR <15 Very Little GFR Left</content>
<content>ESRD GFR <15 on [employer]</content>
<content></content> Chloride Level 107 meq/L 98-107 Normal (applies to non-numeric r esults) [facility] ([facility]) Carbon Dioxide Level 28 meq/L 21-32 Normal (applies to non-num oscar results) [facility] ([facility]) Potassium Serum 4.5 meq/L 3.5-5.1 Normal (applies to non-numeric results) [facility] ([facility]) Calcium Level 9.2 mg/dL 8.5-10.1 Normal (applies to non-numeric re sults) [facility] ([facility]) Anion Gap 6 meq/L 8-16 Below low normal [facility] ( [facility]) Ast/Sgot 38 U/L 7-37 Above high normal [facility] ([facility]) Bilirubin,Total 0.8 mg/dL 0.2-1.0 Normal (applies to non-numeric results) [facility] ([facility]) Alkaline Phosphatase 57 U/L 45-117 Normal (applies to non-num oscar results) [facility] ([facility]) Total Protein 7.3 GM/DL 6.4-8.2 Normal (applies to non-numeric re sults) [facility] ([facility]) Alt/SGPT 34 U/L 12-78 Normal (applies to non-numeric resul ts) [facility] ([facility]) Albumin 4.0 GM/DL 3.2-5.2 Normal (applies to non-numeric resul ts) [facility] ([facility]) Albumin/Globulin Ratio 1.21 1.00-1.93 Normal (applies to non-numeric results) [facility] ([facility]) ID Date Data Source [id number] 08/28/2019 09:35:00 AM EST [facility] ([facility]) Name Value Range Interpretation Code Description Data Leida rce(s) Supporting Document(s) White Blood Count 5.2 10 4.0-10.0 Normal (applies to non-numeri c results) [facility] ([facility]) Red Blood Count 4.85 10 4.00-5.40 Normal (applies to non-numeric results) [facility] ([facility]) Hemoglobin 13.9 g/dL 12.0-15.5 Normal (applies to non-numeric resul ts) [facility] ([facility]) Hematocrit 44.5 % 36.0-47.0 Normal (applies to non-numeric resul ts) [facility] ([facility]) Mean Corpuscular Hemoglobin 28.7 pg 27.0-33.0 Norm al (applies to non-numeric results) [facility] ([facility]) Mean Corpuscular Volume 91.8 fl 80.0-96.0 Normal ( applies to non-numeric results) [facility] ([facility]) Mean Corpuscular HGB Conc 31.2 g/dL 32.0-36.5 Below low normal [facility] ([facility]) Platelet Count, Automated 191 10 150-450 Normal (applies to non-numeric results) [facility] ([facility]) Red Cell Distribution Width 12.6 % 11.5-14.5 Norm al (applies to non-numeric results) [facility] ([facility]) Neutrophils % 53.7 % 36.0-66.0 Normal (applies to non-numeric re sults) [facility] ([facility]) Lymph % 34.5 % 24.0-44.0 Normal (applies to non-numeric resul ts) [facility] ([facility]) Vance % 9.1 % 0.0-5.0 Above high normal [facility] ([facility]) Eos % 2.1 % 0.0-3.0 Normal (applies to non-numeric resul ts) [facility] ([facility]) Nucleated Red Blood Cell % 0.0 % 0-0 Normal (applies to n on-numeric results) [facility] ([facility]) Immature Granulocyte % 0.2 % 0-3.0 Normal (applies to non-n umeric results) [facility] ([facility]) Baso % 0.4 % 0.0-1.0 Normal (applies to non-numeric resul ts) [facility] ([facility]) Neutrophils # 2.8 10 1.5-8.5 Normal (applies to non-numeric re sults) [facility] ([facility]) Vance # 0.5 10 0.0-0.8 Normal (applies to non-numeric resul ts) [facility] ([facility]) Lymph # 1.8 10 1.5-5.0 Normal (applies to non-numeric resul ts) [facility] ([facility]) Baso # 0.0 10 0.0-0.2 Normal (applies to non-numeric resul ts) [facility] ([facility]) Eos # 0.1 10 0.0-0.5 Normal (applies to non-numeric resul ts) [facility] ([facility]) ID Date Data Source [id number] 08/04/2019 10:46:00 AM EST [facility] ([facility]) Name Value Range Interpretation Code Description Data Leida rce(s) Supporting Document(s) Cytology report of Cervical or vaginal smear or scrapi ng Cyto stain.thin prep <pending> [facility] ([facility]) ID Date Data Source [id number] 08/06/2019 02:09:00 PM [facility] Name Value Range Interpretation Code Description Data Leida rce(s) Supporting Document(s) PAP SMEAR THIN PREP [facility] _PAP SMEAR THIN PREP_ SEE SEPARAT E REFERENCE LAB REPORT ID Date Data Source [id number] 08/06/2019 02:06:00 PM [facility] Name Value Range Interpretation Code Description Data Leida rce(s) Supporting Document(s) SOURCE: R [facility] Chlamydia trachomatis rRNA [Presence] in Unspecified specimen by Probe and target amplification method Negative Negative [facility] Neisseria gonorrhoeae rRNA [Presence] in Unspecified specimen by Probe and target amplification method Negative Negative [facility] ID Date Data Source [id number] 07/08/2019 07:38:00 AM EST [facility] ([facility]) Name Value Range Interpretation Code Description Data [...] Never Smoker completed Never S moker [email or web address] ([facility]) Smoking 02/04/2020 12:00:00 AM EDT Patient has never smoked co mpleted Patient has never smoked [facility] ([facility]) Smoking 10/01/2019 12:00:00 AM EST Never Smoker completed Never S magnolia [email or web address] ([facility]) Vital Signs ID Date Data Source [id number] Name Value Range Interpretation Code Description Data Source(s) [place] body weight 100 [lb_av] 100 [lb_av] [facility] T ([facility]) Oxygen saturation in Arterial blood by Pulse oximetry 93 % 93 % [facility] ([facility]) Body temperature 98.2 [degF] 98.2 [degF] [facility] ([facility]) Respiratory rate 16 /min 16 /min [facility] ( [facility]) Heart rate 90 /min 90 /min [facility] ([facility]) Body mass index (BMI) [Ratio] 30.2 kg/m2 30.2 k g/m2 [facility] ([facility]) Body weight 148.38 [lb_av] 148.38 [lb_av] [facility] T ([facility]) Body height 58.8 [in_i] 58.8 [in_i] [facility] ([facility]) 4'10.80" Diastolic blood pressure 70 mm[Hg] 70 mm[Hg] [facility] ([facility]) Systolic blood pressure 115 mm[Hg] 115 mm[Hg] M EDENT ([facility]) [place] body weight 100 [lb_av] 100 [lb_av] [facility] T ([facility]) Oxygen saturation in Arterial blood by Pulse oximetry 98 % 98 % [facility] ([facility]) Body temperature 98.2 [degF] 98.2 [degF] [facility] ([facility]) Respiratory rate 16 /min 16 /min [facility] ( [facility]) Heart rate 81 /min 81 /min [facility] ([facility]) Body mass index (BMI) [Ratio] 30.1 kg/m2 30.1 k g/m2 [facility] ([facility]) Body weight 148.00 [lb_av] 148.00 [lb_av] [facility] T ([facility]) Body height 58.8 [in_i] 58.8 [in_i] [facility] ([facility] " Diastolic blood pressure 70 mm[Hg] 70 mm[Hg] [facility] ([facility]) Systolic blood pressure 102 mm[Hg] 102 mm[Hg] M EDENT ([facility]) [place] body weight 100 [lb_av] 100 [lb_av] [facility] T ([facility]) Oxygen saturation in Arterial blood by Pulse oximetry 97 % 97 % [facility] ([facility]) Body temperature 99.4 [degF] 99.4 [degF] [facility] ([facility]) Respiratory rate 18 /min 18 /min [facility] ( [facility]) Heart rate 69 /min 69 /min [facility] ([facility]) Body mass index (BMI) [Ratio] 29.7 kg/m2 29.7 k g/m2 [facility] ([facility]) Body weight 146.12 [lb_av] 146.12 [lb_av] [facility] T ([facility]) Body height 58.8 [in_i] 58.8 [in_i] [facility] ([facility] " Diastolic blood pressure 72 mm[Hg] 72 mm[Hg] [facility] ([facility]) Systolic blood pressure 110 mm[Hg] 110 mm[Hg] M EDENT ([facility]) [place] body weight 100 [lb_av] 100 [lb_av] [facility] T ([facility], ) Body mass index (BMI) [Ratio] 28.7 kg/m2 28.7 k g/m2 [facility] ([facility], ) Body weight 142.00 [lb_av] 142.00 [lb_av] [facility] T ([facility], ) Body height 59 [in_i] 59 [in_i] [facility] ([facility]) 4'11" Oxygen saturation in Arterial blood by Pulse oximetry 99 % 99 % [facility] ([facility]) Body temperature 99.7 [degF] 99.7 [degF] [facility] ([facility]) Respiratory rate 18 /min 18 /min [facility] ( [facility]) Heart rate 88 /min 88 /min [facility] ([facility]) Body mass index (BMI) [Ratio] 29.2 kg/m2 29.2 k g/m2 [facility] ([facility]) Body weight 143.50 [lb_av] 143.50 [lb_av] [facility] T ([facility]) Body height 58.8 [in_i] 58.8 [in_i] [facility] ([facility]) .80" Diastolic blood pressure 78 mm[Hg] 78 mm[Hg] [facility] ([facility]) Systolic blood pressure 122 mm[Hg] 122 mm[Hg] M EDENT ([facility]) Oxygen saturation in Arterial blood by Pulse oximetry 99 % 99 % [facility] ([facility]) Body temperature 97.8 [degF] 97.8 [degF] [facility] ([facility]) Respiratory rate 16 /min 16 /min [facility] ( [facility]) Heart rate 83 /min 83 /min [facility] ([facility]) Body mass index (BMI) [Ratio] 28.7 kg/m2 28.7 k g/m2 [facility] ([facility]) Body weight 141.00 [lb_av] 141.00 [lb_av] [facility] T ([facility]) Body height 58.8 [in_i] 58.8 [in_i] [facility] ([facility] .80" Diastolic blood pressure 78 mm[Hg] 78 mm[Hg] [facility] ([facility]) Systolic blood pressure 118 mm[Hg] 118 mm[Hg] M EDENT ([facility]) Oxygen saturation in Arterial blood by Pulse oximetry 99 % 99 % [facility] ([facility]) Body temperature 99.5 [degF] 99.5 [degF] [facility] ([facility]) Respiratory rate 18 /min 18 /min [facility] ( [facility]) Heart rate 75 /min 75 /min [facility] ([facility]) Body mass index (BMI) [Ratio] 28.7 kg/m2 28.7 k g/m2 [facility] ([facility]) Body weight 141.12 [lb_av] 141.12 [lb_av] [facility] T ([facility]) Body height 58.8 [in_i] 58.8 [in_i] [facility] ([facility]) 4'10.80" Systolic blood pressure 122 mm[Hg] 122 mm[Hg] [facility]) Body weight 61.690 kg 61.690 kg [facility] ([facility], ) Body mass index (BMI) [Ratio] 27.5 kg/m2 27.5 k g/m2 [facility] ([facility], ) Body weight 136.00 [lb_av] 136.00 [lb_av] [facility] ([facility]) Body height 59 [in_i] 59 [in_i] [facility] [facility] 4'11" Body temperature 97.4 [degF] 97.4 [degF] [facility] ([facility]) Oxygen saturation in Arterial blood by Pulse oximetry 99 % 99 % [facility] ([facility]) Body temperature 98.8 [degF] 98.8 [degF] [facility] ([facility]) Respiratory rate 18 /min 18 /min [facility] ( [facility]) Heart rate 92 /min 92 /min [facility] ([facility]) Body mass index (BMI) [Ratio] 28.3 kg/m2 28.3 k g/m2 [facility] ([facility]) Body weight 139.00 [lb_av] 139.00 [lb_av] MEDEN T ([facility]) Body height 58.8 [in_i] 58.8 [in_i] MEDENT ([facility] " Diastolic blood pressure 74 mm[Hg] 74 mm[Hg] [facility] ([facility]) Systolic blood pressure 122 mm[Hg] 122 mm[Hg] M EDENT ([facility]) Oxygen saturation in Arterial blood by Pulse oximetry 97 % 97 % [facility] ([facility]) Body temperature 98.7 [degF] 98.7 [degF] [facility] ([facility]) Respiratory rate 18 /min 18 /min [facility] ( [facility]) Heart rate 85 /min 85 /min [facility] ([facility]) Body mass index (BMI) [Ratio] 28.7 kg/m2 28.7 k g/m2 [facility] ([facility]) Body weight 141.25 [lb_av] 141.25 [lb_av] MEDEN T ([facility]) Body height 58.8 [in_i] 58.8 [in_i] [facility]ENT ([facility] " Diastolic blood pressure 68 mm[Hg] 68 mm[Hg] [facility] ([facility]) Systolic blood pressure 114 mm[Hg] 114 mm[Hg] M EDENT ([facility]) Diastolic blood pressure 82 mm[Hg] 82 mm[Hg] eCW1 ([facility]) Systolic blood pressure 118 mm[Hg] 118 mm[Hg] e CW1 ([facility]) Body mass index (BMI) [Ratio] 28.48 kg/m2 28.48 kg/m2 eCW1 ([facility]) Body height [in_us] eCW1 ([facility]) Body weight Measured 141 [lb_av] 141 [lb_av] eC W1 ([facility]) Diastolic blood pressure 72 mm[Hg] 72 mm[Hg] eCW1 ([facility]) Systolic blood pressure 140 mm[Hg] 140 mm[Hg] e CW1 ([facility]) Body mass index (BMI) [Ratio] 28.6 kg/m2 28.6 k g/m2 W1 ([facility]) Body height [in_us] eCW1 ([facility]) Body weight Measured 141.6 [lb_av] 141.6 [lb_av ] eCW1 ([facility]) Oxygen saturation in Arterial blood by Pulse oximetry 97 % 97 % [facility] ([facility]) Body temperature 99.2 [degF] 99.2 [degF] [facility] ([facility]) Respiratory rate 18 /min 18 /min [facility] ( [facility]) Heart rate 69 /min 69 /min [facility] ([facility]) Body mass index (BMI) [Ratio] 28.5 kg/m2 28.5 k g/m2 [facility] ([facility]) Body weight 140.25 [lb_av] 140.25 [lb_av] MEDEN T ([facility]) Body height 58.8 [in_i] 58.8 [in_i] [facility] ([facility] 4'10.80" Diastolic blood pressure 68 mm[Hg] 68 mm[Hg] [facility] ([facility]) Systolic blood pressure 110 mm[Hg] 110 mm[Hg] M [facility] ([facility]) Body surface area 1.58 m2 1.58 m2 [facility] ([facility]) Body mass index (BMI) [Ratio] 28.1 kg/m2 28.1 k g/m2 [facility] ([facility]) Body height 59 [in_i] 59 [in_i] [facility] ([facility]) 4'11" Body weight 63.050 kg 63.050 kg [facility] ([facility]) Body weight 139.00 [lb_av] 139.00 [lb_av] MEDEN T ([facility]) Heart rate 59 /min 59 /min [facility] ([facility]) Diastolic blood pressure 84 mm[Hg] 84 mm[Hg] [facility] ([facility]) Systolic blood pressure 133 mm[Hg] 133 mm[Hg] M [facility] Patient Treatment Plan of Care Planned Activity Planned Date Details Description Data Source (s) medroxyprogesterone acetate 150 MG/ML Injectable Suspe nsion [Depo-Provera] 09/11/2019 12:00:00 AM EST eCW1 ([facility])
[2020-09-02 07:45] VITALS: BP 127/78
[2020-09-02] MEDS ORDERED: METH1TAB40 PO (07:59)
[2020-09-02] MEDS ORDERED: NAPR-837 PO (07:59)
== END 2020-09-02 08:04 | disposition home or self-care (01) ==
LOC: M ED 06:33
DX: M62.830 Muscle spasm of back (principal); M51.36 Other intervertebral disc degeneration, lumbar region; Z79.899 Other long term (current) drug therapy
CPT/HCPCS: 96372; 99283; J1885

== ENCOUNTER → 2020-10-06 | Outpatient (CLI) | payer OTHER ==
[~2020-10-06] MED LIST changes: +BRIN10TA4 PO; +METH-1164 PO; +NAPR-837 PO
[2020-10-06 17:37] LABS: BASO % 0.5 % (0.0-1.0); EOS # 0.1 10^3/uL (0.0-0.5); EOS % 1.7 % (0.0-3.0); HEMATOCRIT 43.5 % (36.0-47.0); HEMOGLOBIN 13.5 g/dl (12.0-15.5); LYMPH # 2.2 10^3/uL (1.5-5.0); LYMPH % 36.4 % (24.0-44.0); MEAN CORPUSCULAR HEMOGLOBIN 27.7 pg (27.0-33.0); MEAN CORPUSCULAR VOLUME 89.1 fl (80.0-96.0); MONO # 0.6 10^3/uL (0.0-0.8); MONO % 9.3 % (2.0-8.0); NEUTROPHILS # 3.1 10^3/uL (1.5-8.5); NEUTROPHILS % 51.9 % (36.0-66.0); PLATELET COUNT, AUTOMATED 183 10^3/uL (150-450); RED BLOOD COUNT 4.88 10^6/uL (4.00-5.40); WHITE BLOOD COUNT 5.9 10^3/uL (4.0-10.0)
[2020-10-06 18:16] LABS: FREE T4 0.83 NG/DL (0.76-1.46); THYROID STIMULATING HORMONE 0.93 uIU/ML (0.358-3.740)
[2020-10-06 18:18] LABS: TOTAL 25(OH) VITAMIN D 23.4 NG/ML (30.0-100.0)
[2020-10-08 23:14] LABS: ANA (HEP2) Positive (.); TISSUE TRANSGLUTAMINASE IgA <2 U/mL (0-3); TISSUE TRANSGLUTAMINASE IgG <2 U/mL (0-5); UNITSIGA FOR GLIADIN IGA 6 units (0-19); UNITSIGG FOR GLIADIN IGG 2 units (0-19)
== END ==
LOC: M PLALAB 15:03
PROVIDERS: ATTEND Family Medicine
DX: R53.83 Other fatigue (principal)

== ENCOUNTER → 2020-11-25 | Outpatient (REF) | payer OTHER ==
[2020-11-25 19:52] LABS: CHLAMYDIA DNA AMPLIFICATION NEGATIVE (NEGATIVE); GC DNA AMPLIFICATION NEGATIVE (NEGATIVE)
== END ==
LOC: M SFHCWAGY 17:02
PROVIDERS: ATTEND Obstetrics & Gynecology
DX: Z12.4 Encounter for screening for malignant neoplasm of cervix (principal); Z11.3 Encounter for screening for infections with a predominantly sexual mode of transmission
CPT/HCPCS: 87661; G0123; G0463

== ENCOUNTER → 2020-12-15 | Outpatient (CLI) | payer SELFPAY | LOC: M LABSMTC 10:04 | PROVIDERS: ATTEND Pediatrics | DX: Z11.52 Encounter for screening for COVID-19 (principal) ==